=== PATIENT | female | born 1975 | race Caucasian/White ===

== ENCOUNTER 2021-08-27 12:56 | Outpatient (CLI) | payer BC, SELFPAY ==
[2021-08-27 13:55] LABS: Hematocrit 40.3 % (37.0-47.0); Hemoglobin 12.9 g/dL (12.0-15.0); Mean Corpuscular Hemoglobin 32.7 pg (26-34); Mean Platelet Volume 10.1 fl (7.4-10.4); Platelet Count Result 237 k/mm3 (150-375); Red Blood Count 3.95 M/mm3 (4.2-5.4); Red Cell Distribution Width 12.6 % (11.5-14.5); White Blood Count 6.9 K/mm3 (4.5-10.0)
[2021-08-27 15:05] LABS: Erythrocyte Sedimentation Rate 13 mm/hr (0-20)
[2021-08-27 15:31] LABS: Alanine Aminotransferase 93 U/L (6-35); Albumin Level 5.1 g/dL (3.5-5.1); Alkaline Phosphatase 82 U/L (38-126); Anion Gap 9 mmol/L (8-16); Aspartate Amino Transferase 63 U/L (14-36); Bilirubin,Total 0.3 mg/dL (0.2-1.3); Blood Urea Nitrogen 8 mg/dL (7-17); CRP < 0.5 mg/dL (<1.0); Calcium 9.6 mg/dL (8.4-10.2); Carbon Dioxide 26 mmol/L (22-30); Chloride 102 mmol/L (98-107); Estimated Glomerular Filt Rate > 60; Glucose 109 mg/dL (65-110); Potassium 4.4 mmol/L (3.4-5.0); Sodium 137 mmol/L (137-145)
== END 2021-08-27 12:57 | disposition home or self-care (01) ==
PROVIDERS: PCP Internal Medicine; Visit Provider Nurse Practitioner
DX: R68.81 Early satiety (principal); R19.7 Diarrhea, unspecified; R19.4 Change in bowel habit; R14.0 Abdominal distension (gaseous); R10.84 Generalized abdominal pain
CPT/HCPCS: 36415; 80053; 84443; 85027; 85652; 86140

== ENCOUNTER 2021-09-01 14:08 | Outpatient (CLI) | payer BC, SELFPAY ==
[2021-09-01 15:20] LABS: Toxigenic C. Diff NEGATIVE (NEGATIVE)
[2021-09-08 18:43] LABS: Calprotectin, Stool 16 mcg/g
== END 2021-09-01 14:09 | disposition home or self-care (01) ==
PROVIDERS: PCP Internal Medicine; Visit Provider Nurse Practitioner
DX: R10.84 Generalized abdominal pain (principal); R19.7 Diarrhea, unspecified; R19.4 Change in bowel habit; R14.0 Abdominal distension (gaseous); R68.81 Early satiety
CPT/HCPCS: 83993; 87045; 87427; 87493

== ENCOUNTER 2021-10-06 00:11 | Day surgery (SDC) | payer BC, SELFPAY ==
[2021-09-28 15:03] VITALS: BMI 32.3
[2021-10-06 08:21] VITALS: BP 131/88; PULSE 74; RESP 16; TEMP 36.5; O2SAT 99; BMI 32.0
[2021-10-06] MEDS: LACTATED RINGERS 1,000 ML 150 ML IV CONT (08:30)
--- NOTE | 2021-10-06 09:20 | PM.HPGS ---
History of Present Illness History of Present Illness Consent: Risks, benefits, and alternatives have been discussed and questions answered. Patient agrees to proceed with procedure. Chief complaint: GERD, change in bowel habits, early satiety Narrative: Aida Banerjee is a 46 year old female with gerd but not taking any med, also ibs with change in bowel habits (stool negative for infection), using bentyl, never had colonoscopy Review of Systems Constitutional: Constitutional: Denies headache(s) and Denies weakness Eyes: Eyes: Denies blurry vision ENT: Reports Normal hearing present, Denies headache(s) and Denies neck pain Cardiovascular: Cardiovascular: Denies chest pain and Denies dyspnea Respiratory: Respiratory: Denies dyspnea Gastrointestinal: Gastrointestinal: Reports no additional gastrointestinal complaints Genitourinary: Genitourinary: Denies dysuria Musculoskeletal: Musculoskeletal: Denies neck pain Integumentary/Breasts: Skin/Breast: Denies dry skin Neurologic: Reports Normal hearing present, Denies headache(s) and Denies weakness Psychiatric: Psychiatric: Denies anxiety Endocrine: Endocrine: Denies change in body appearance Hematologic/Lymphatic: Hematologic/Lymphatic: Denies easy bleeding Allergic/Immunologic: Allergic/Immunologic: Denies urticaria PMFSH Past Medical History Medical History (Updated 08/27/21 @ 12:26 by Marianne Liu, LOU) Bloating delivery delivered Change in bowel habit Diarrhea Early satiety Generalized abdominal pain Surgical History Surgical History (Updated 08/27/21 @ 11:49 by Jody Monroy MA) H/O laparoscopy H/O: hysterectomy Family History Family History (Updated 08/27/21 @ 11:51 by Jody Monroy MA) Father Heart disease Alcohol abuse Cancer Mother Asthma Depression Social History Social History (Updated 08/27/21 @ 11:52 by Jody Monroy MA) Smoking status: Current every day smoker Tobacco type: e-cigarettes/vaping Second hand tobacco smoke exposure: Yes Alcohol intake: current Alcohol use details: occasional Substance use: current Substance use type: marijuana Other substance usage details: Daily Living arrangements: with family Gender identity (if verbalized by the patient): Female Spiritual care concerns: No Meds Home Medications and Allergies Home Medications Medication Instructions Recorded Confirmed Type duloxetine 60 mg capsule,delayed 60 mg PO DAILY 08/27/21 10/06/21 History release (Cymbalta) propranolol 60 mg capsule,24 60 mg PO DAILY 08/27/21 10/06/21 History hr,extended release trazodone 150 mg tablet 150 mg PO DAILY 08/27/21 10/06/21 History acetaminophen 650 mg 650 mg PO Q8H PRN Pain 09/28/21 10/06/21 History tablet,extended release (Tylenol Arthritis Pain) dicyclomine 10 mg capsule 10 - 20 mg PO QID PRN Diarrhea 09/28/21 10/06/21 History hydroxyzine HCl 10 mg tablet 10 mg PO BID 09/28/21 10/06/21 History lactobacillus combination no.8 3 3,000,000 cell PO DAILY 09/28/21 10/06/21 History billion cell capsule Allergies Allergy/AdvReac Type Severity Reaction Status Date / Time Sulfa (Sulfonamide Allergy Mild Unknown Verified 10/06/21 08:19 Antibiotics) latex Allergy Blister Verified 10/06/21 08:19 Vital Signs Vital Signs - 24 hr 10/06/21 08:21 Temperature 97.7 F Pulse Rate 74 Respiratory Rate 16 Blood Pressure 131/88 Pulse Oximetry 99 Oxygen Delivery Room Air Exam Const: General: comfortable and no acute distress HENMT: General nose exam: Normal nares present Eyes: General: appearance normal, both eyes and all related structures Neck: Neck: no JVD Resp: Auscultation: clear to auscultation bilaterally Cardio: Rate: regular rate Rhythm: regular rhythm GI: Inspection: non-distended GI Palp: Yes Soft to palpation Skin: General skin exam: normal color Neuro: General: gait normal Speech: normal speech
--- NOTE | 2021-10-06 09:39 | SUR.OPER ---
EGD FINISHED AT 933 & COLONOSCOPY BEGAN AT 937.
[2021-10-06 09:51] VITALS: BP 124/82; PULSE 83; RESP 21; O2SAT 100
[2021-10-06 10:01] VITALS: BP 134/81; PULSE 78; RESP 19; O2SAT 100
[2021-10-06 10:11] VITALS: BP 125/86; PULSE 69; RESP 16; O2SAT 100
== END 2021-10-06 10:18 | disposition home or self-care (01) ==
PROVIDERS: PCP Physician Assistant Medical; Visit Provider Internal Medicine Gastroenterology
PROC: 0DJ08ZZ Inspection of Upper Intestinal Tract, Via Natural or Artificial Opening Endoscopic (ICD-10-PCS; CPT 43235; principal; 2021-10-06 09:30)
DX: Z12.11 Encounter for screening for malignant neoplasm of colon (principal); K52.9 Noninfective gastroenteritis and colitis, unspecified; K64.8 Other hemorrhoids; K21.9 Gastro-esophageal reflux disease without esophagitis; K44.9 Diaphragmatic hernia without obstruction or gangrene; K29.50 Unspecified chronic gastritis without bleeding; F17.290 Nicotine dependence, other tobacco product, uncomplicated; F12.90 Cannabis use, unspecified, uncomplicated
CPT/HCPCS: 45380; 43239; 88305; J2704; J7120

== ENCOUNTER 2021-11-03 10:14 | Outpatient (CLI) | payer BC, SELFPAY ==
--- NOTE | ~2021-11-03 | US_ITS ---
EXAMINATION: US abdomen limited DATE: 11/03/2021 11:07 INDICATION: Elevated liver function tests TECHNIQUE: Multiple grayscale and Doppler ultrasound images of the abdomen were obtained. COMPARISON: None available FINDINGS: The head and body of the pancreas are normal. The pancreatic tail is obscured by bowel gas. The liver demonstrates increased echogenicity, heterogenous echotexture, and decreased through trans mission. No surface nodularity. Normal hepatopetal flow in the main portal vein. The gallbladder is n ormal with no abnormal wall thickening, pericholecystic fluid or stones. The normal common bile duct measures 4 mm. There was no sonographic Pulliam sign. IMPRESSION: 1. Diffuse hepatic steatosis. Reviewed, dictated and finalized at location B.
== END 2021-11-03 10:15 | disposition home or self-care (01) ==
PROVIDERS: PCP Physician Assistant Medical; Visit Provider Nurse Practitioner
DX: R79.89 Other specified abnormal findings of blood chemistry (principal); K76.0 Fatty (change of) liver, not elsewhere classified; R10.84 Generalized abdominal pain
CPT/HCPCS: 76705

== ENCOUNTER 2022-03-03 06:38 | Outpatient (CLI) | payer OTHER, SELFPAY ==
--- NOTE | ~2022-03-03 | MR_ITS ---
EXAMINATION: MR ankle RT wo con DATE: 03/03/2022 08:05 INDICATION: Right ankle pain TECHNIQUE: Magnetic resonance imaging (MRI) of the right ankle was performed without intravenous cont rast. Sequences included sagittal, coronal, and axial proton-density weighted fast spin echo without and with fat saturation. COMPARISON: None. FINDINGS: Medial ankle ligaments: Deep and superficial deltoid ligaments as well as the spring ligament are normal. Lateral ankle ligaments: The anterior and posterior inferior tibiofibular ligaments are normal. The anterior talofibular, calc aneofibular and posterior talofibular ligaments are normal. Tendons: Mild Achilles tendinosis without peritendinitis or tear. The peroneus longus and brevis tendons are n ormal. The tibialis anterior and extensor hallucis longus and extensor digitorum longus tendons are n ormal. The tibialis posterior, flexor digitorum longus and flexor hallucis longus tendons are normal. Plantar fascia: Mild thickening of the proximal central component of the plantar aponeurosis with small plantar osteo phyte at its calcaneal origin consistent with mild chronic enthesopathy. Bones/other: Bone alignment is normal. There is thickening of the bifurcate ligament consistent with scarring rela katelin to chronic sprain with tiny nonunited avulsion fracture fragment along its origin at the dorsal m argin of the anterior process of the calcaneus. No acute fracture. Mild osteoarthritis at the right a nkle joint with small region of deep chondral ulceration along the lateral margin of the talar dome w ith areas tiny subarticular cystlike change remaining joint spaces appear normal. Fluid: Physiologic amount fluid in the joint spaces. No tenosynovitis or other abnormal fluid collections. IMPRESSION: 1. Chronic sprain of the bifurcate ligament with tiny chronic nonunited avulsion fracture fragment at its calcaneal origin. 2. Mild right ankle osteoarthritis with small region of high-grade chondral malacia along the lateral talar dome. 3. Mild Achilles tendinosis and mild enthesopathy at the proximal plantar aponeurosis. Reviewed, dictated and finalized at location A. RATION TECHNOLOGIST IMPRESSION: 1. Chronic sprain of the bifurcate ligament with tiny chronic nonunited avulsio n fracture fragment at its calcaneal origin. 2. Mild right ankle osteoarthritis with small region of high-grade chondral mal acia along the lateral talar dome. 3. Mild Achilles tendinosis and mild enthesopathy at the proximal plantar apone urosis.
== END 2022-03-03 06:39 | disposition home or self-care (01) ==
PROVIDERS: PCP Physician Assistant Medical; Visit Provider Physician Assistant Medical
DX: S93.491A Sprain of other ligament of right ankle, initial encounter (principal); M84.471A Pathological fracture, right ankle, initial encounter for fracture; M19.071 Primary osteoarthritis, right ankle and foot; M76.61 Achilles tendinitis, right leg; M77.51 Other enthesopathy of right foot and ankle; X58.XXXA Exposure to other specified factors, initial encounter
CPT/HCPCS: 73721

== ENCOUNTER 2022-03-15 15:32 | Outpatient (CLI) | payer OTHER, SELFPAY ==
--- NOTE | ~2022-03-15 | MM_ITS ---
EXAMINATION: MM screening liborio BI w rupesh HISTORY: Screening mammogram TECHNIQUE: Craniocaudal and mediolateral oblique 3-D tomosynthesis images were obtained and synthetic 2-D images were generated. CAD analysis was submitted and interpreted. COMPARISON: No prior mammogram is available for comparison at this institution. BREAST PARENCHYMAL COMPOSITION: The breasts are heterogeneously dense, which may obscure small masses . FINDINGS: There is no evidence of suspicious mass, calcification, or architectural distortion to sugg est malignancy in either breast. There has been no suspicious interval change. IMPRESSION: 1. No mammographic evidence of malignancy. 2. Recommend routine screening mammography in one year. BI-RADS Category 1: Negative Reviewed, dictated and finalized at location A. F ENGINEER
== END 2022-03-15 15:33 | disposition home or self-care (01) ==
PROVIDERS: PCP Physician Assistant Medical; Visit Provider Physician Assistant Medical
DX: Z12.31 Encounter for screening mammogram for malignant neoplasm of breast (principal)
CPT/HCPCS: 77063; 77067

== ENCOUNTER 2024-03-08 16:06 | Outpatient (CLI) | payer OTHER, SELFPAY ==
--- NOTE | ~2024-03-08 | CT_ITS ---
EXAMINATION: CT brain wo con DATE: 03/08/2024 15:55 INDICATION: Tremor TECHNIQUE: Computed tomography (CT) of the head was performed without intravenous contrast. Sagittal and coronal reconstructions were performed. The mA was adjusted according to patient size. Iterative reconstruction technique was employed. The dose-length product was 605.33 mGy-cm. COMPARISON: None FINDINGS: No acute intracranial hemorrhage, acute infarction or abnormal extra axial fluid collection. Ventricl es are normal and symmetric. No mass/mass effect. The orbits, paranasal sinuses and mastoid air cells are normal. IMPRESSION: 1. Normal brain. No acute intracranial process. Reviewed, dictated and finalized at location B. MOBILE ENGINE ASSEMBLER
[2024-03-08 21:20] LABS: Folic Acid 7.2 ng/mL (2.76->20)
== END 2024-03-08 16:07 | disposition home or self-care (01) ==
PROVIDERS: PCP Nurse Practitioner Family; Visit Provider Nurse Practitioner Family
DX: R25.1 Tremor, unspecified (principal)
CPT/HCPCS: 36415; 70450; 82607; 82746

== ENCOUNTER 2024-06-04 08:58 | Outpatient (CLI) | payer OTHER, SELFPAY ==
--- NOTE | ~2024-06-04 | MR_ITS ---
MRI of the brain Clinical History: Multiple sclerosis Technique: Axial and sagittal T1-weighted images were acquired. These were followed by axial T2-weigh katelin, diffusion weighted, gradient, and FLAIR images. Following intravenous administration of 14 cc Mu ltiHance gadolinium, T1-weighted fat-sat imaging was performed in the axial, coronal, and sagittal pl anes. Findings: No abnormal signal seen in the brain parenchyma. No acute infarct, intracranial hemorrhage or mass lesion. No white matter lesions are identified. Ventricles and subarachnoid spaces are unremarkable. Orbits are unremarkable. Paranasal sinuses and m astoid air cells are clear. Major intracranial flow voids are intact. Sagittal midline structures are intact. No abnormal postcontrast enhancement identified. IMPRESSION: Normal exam. Reviewed, dictated and finalized at location . IMPRESSION: Normal exam.
--- OUTSIDE RECORDS SUMMARY | 2024-06-04 09:26 | XMS_ITS | Patient Health Record ---
Author Organization [facility] Address [address] [place] [address] Care Team Providers Care Programs Assistant Name Role Phone Priscilla Salter Primary Care Provider Unavailab Cheo Harris Unavailable [phone] [employer], Provider Unavailable Unavailab le Allergies Allergen (clinical drug ingredient) Drug/Non Drug Allergy documented on EMR Reaction Allergy Type Onset Date Status indomethacin Indomethacin other reaction Drug Allergy Active sulfadiazine sulfADIAZINE hives Drug Allergy A ctive Reason For Referral No Information Medications Medication SIG (Take, Route, Frequency, Duration) Notes Start Date End Date Status NASAL WASHES N/A DIRECTED INTRANASALLY NEEDED for 30 *Please review for potential replacement for e-prescription and drug interaction check* Active Triamcinolone Acetonide 0.1 % 1 haja applied topically 3 times a day for 30 day(s) Active buPROPion HCl 75 MG 1 tab(s) orally 3 times a day Not-Taking FAMOTIDINE 40 mg 1 tab(s) orally 30 mins prior to SCIT for 30 days Active AUVI -Q 0.3 mg as directed intramuscularly once for 30 days Active Belsomra 10 MG 1 tab(s) orally once a day (at bedtime) Active CETIRIZINE 10 mg 1 tab(s) orally once a day for 30 days Active FLUTICASONE NASAL 50 mcg/inh 2 spray(s) in each nostril BID for 30 day(s) Active EPIPEN 2-JM 0.3 mg as directed intramuscularly once for 90 days 04/18/2022 Active PROPRANOLOL 60 mg 1 tab(s) orally 2 times a day takes once a day Active Triamcinolone Acetonide 0.1 % 1 haja applied topically 3 times a day for 30 day(s) 07/05/2022 Active DULOXETINE 60 mg 1 cap(s) orally once a day Active SIT (CLUSTER) VARIABLE PER SCHEDULE SC PER SCHEDULE for TO BE DETERMINED *Please review for potential replacement for e-prescription and drug interaction check* Active Montelukast Sodium 10 MG 1 tab(s) orally once a day for 30 day(s) Active FLUOCINONIDE TOPICAL 0.05% 1 haja applied topically 3 times a day uses prn itch Active BELSOMRA 10 mg 1 tab(s) orally once a day (at bedtime) Active Auvi-Q 0.3 MG/0.3ML as directed intramuscularly once for 30 days Active CLONAZEPAM 0.5 mg 1 tab(s) orally 3 times a day takes one pill daily Active Famotidine 40 MG 1 tab(s) orally 30 mins prior to SCIT for 30 days Active BUPROPION 75 mg 1 tab(s) orally 3 times a day Not-Taking TRIAMCINOLONE ACETONIDE TOPICAL 0.1% 1 haja applied topically 3 times a day for 30 day(s) Active EpiPen 2-Jm 0.3 MG/0.3ML as directed intramuscularly once for 90 days 04/18/2022 Active TRAZADONE 50MG 1 BY MOUTH AT BEDTIME takes 3 @ HS *Please review for potential replacement for e-prescription and drug interaction check* Active Fluticasone Propionate 50 MCG/ACT 2 spray(s) in each nostril BID for 30 day(s) Active Cetirizine HCl 10 MG 1 tab(s) orally once a day for 30 days Active MONTELUKAST 10 mg 1 tab(s) orally once a day for 30 day(s) Active Fluocinonide 0.05 % 1 haja applied topically 3 times a day uses prn itch Active clonazePAM 0.5 MG 1 tab(s) orally 3 times a day takes one pill daily Active DULoxetine HCl 60 MG 1 cap(s) orally once a day Active TRIAMCINOLONE ACETONIDE TOPICAL 0.1% 1 haja applied topically 3 times a day for 30 day(s) 07/05/2022 Active Propranolol HCl 60 MG 1 tab(s) orally 2 times a day takes once a day Active Social History Tobacco Use: Social History Observation Description Date Details (start date - stop date) Light tobacco s moker NA - NA Smoking Smart Form: Question Answer Notes Are you a: light tobacco smoker Problems Problem Type SNOMED Code ICD Code Onset Dates Problem Status W/U Status Risk Notes Problem Chronic allergic conjunctivitis (36819741) Other chronic allergic conjunctivitis (H10.45) Active confirmed Problem Allergic rhinitis caused by pollen (disorder) (66951806) Allergic rhinitis due to pollen (J30.1) Active confirmed Problem Allergic rhinitis caused by animal hair and dander (198946038531898) Allergic rhinitis due to animal (cat) (dog) hair and dander (J30.81) Active confirmed Problem Allergic rhinitis (22497388) Other allergic rhinitis (J30.89) Active confirmed Problem Prurigo nodularis (16022244) Prurigo nodularis (L28.1) Active confirmed Problem Dermatitis (181760360) Dermatitis, unspecified (L30.9) Active confirmed Problem Allergic rhinitis caused by pollen (disorder) (28246437) Allergic rhinitis due to pollen (J30.1) Active confirmed Problem Allergic rhinitis caused by animal hair and dander (723967746799348) Allergic rhinitis due to animal (cat) (dog) hair and dander (J30.81) Active confirmed Problem Allergic rhinitis (83422445) Other allergic rhinitis (J30.89) Active confirmed Problem Chronic allergic conjunctivitis (64287494) Other chronic allergic conjunctivitis (H10.45) Active confirmed Problem Allergic contact dermatitis caused by chemical (3541217286914866 3) Allergic contact dermatitis due to other chemical products (L23.5) Active confirmed Problem Eruption of skin (665533762) Rash and other nonspecific skin eruption (R21) Active confirmed Problem Allergic contact dermatitis due to metals (L23.0) Active confirmed Problem Elevated blood pressure reading without diagnosis of hypertension (551761000) Elevated blood-pressure reading, without diagnosis of hypertension (R03.0) Active confirmed Encounters Encounter Location Date Provider Diagnosis [facility] [address] 08/05/2023 Provider ZZ-Migration Plan Of Treatment No Information Insurance Providers Payer Name Payer Address Payer Phone Subscriber Number Group Number Insured Name Patient Relationship to Insured Coverage Start Date Coverage End Date [facility] [address] [address] [place] [address] [phone] [id number] Jorge Banerjee Spouse - patient is the spouse of the insured Medical (General) History Medical History History ICD Code Allergic rhinitis due to pollen J30.1 Allergic rhinitis due to animal (cat) (d og) hair and dander J30.81 Other allergic rhinitis J30.89 Other chronic allergic conjunctivitis H1 0.45 Rash and other nonspecific skin eruption R21 Dermatitis, unspecified L30.9 Elevated blood-pressure reading, without diagnosis of hypertension R03.0 Allergic contact dermatitis due to other chemical products L23.5 Allergic contact dermatitis due to metal s L23.0 Surgical History Surgery Date(Month/Year) C-Sections
--- OUTSIDE RECORDS SUMMARY | 2024-06-04 09:26 | XMS_ITS | Clinical Summary ---
Author Organization [facility] [address] [facility] Address [address] [place] [address] Care Team Providers Care Supply Tech Name Role Phone Jaclyn Salter Primary Care Provider [phone] Benson Newman MD Unavailable [phone] Allergies Active Allergy Reactions Criticality Noted Date Comments Indomethacin Anaphylaxis,Other (See comments),Swelling High 10/04/2017 Throat swelling Latex Rash Medium 01/29/2019 Sulfa (Sulfonamide Antibiotics) Anaphylaxis High 01/29/2019 Medications No known medications Active Problems Problem Noted Date Diagnosed Date Positive KISHA (antinuclear antibody) 12/21/2020 Overview (01/11/2021): Labs 12/21/2020 AVISE: KISHA 1:320 homogeneous, cardiolipin IgA 22, B2 glycoprotein IgA 176 CRP, CK, LDH, and aldolase wnl Xrays 01/05/2021 XR SI joints - L OA XR B knees and L spine unremarkable Ultrasound 01/05/2021 US right hand/wrist: Mild effusions and power doppler on examination. Marked synovial thickening in the 2nd PIP joint. Moderate synovial thickening in the 3rd PIP joint. Grade 1 power doppler in the wrist and radial/scaphoid joint. Grade 1 effusion in the 2nd PIP joint. Assessment & Plan (01/11/2021 10:09 AM CYBER THREAT ANALYST): 45yoF referred for evaluation due to rash, joint pain/stiffness, muscle weakness, and labs showing +KISHA with SENIOR ELECTRICAL ESTIMATOR 1.1. She denies any inflammatory sounding joint pain. The rash she notes has been present from her scalp to the soles of her feet and is associated with pruritus; lesions today appear excoriated and she has numerous scars/hypopigmentation from prior lesions. She otherwise notes sicca symptoms and h/o photosensitive rashes. By exam today she has numerous tender joints without any obvious synovitis and her strength is appropriate throughout. Our workup shows an KISHA 1:320 with otherwise unremarkable serologies including the SENIOR ELECTRICAL ESTIMATOR, xrays with L SI joint OA, and R hand/wrist ultrasound without significant inflammatory changes. Overall there is not evidence to suggest any underlying rheumatologic diagnosis. Agree with need for derm evaluation of skin lesions. Follow up with our office as needed should symptoms warrant. Assessment & Plan (12/21/2020 2:58 PM CDT): 45yoF referred for evaluation due to rash, joint pain/stiffness, muscle weakness, and labs showing +KISHA with SENIOR ELECTRICAL ESTIMATOR 1.1. She denies any inflammatory sounding joint pain. The rash she notes has been present from her scalp to the soles of her feet and is associated with pruritus; lesions today appear excoriated and she has numerous scars/hypopigmentation from prior lesions. She otherwise notes sicca symptoms and h/o photosensitive rashes. By exam today she has numerous tender joints without any obvious synovitis and her strength is appropriate throughout. The +SENIOR ELECTRICAL ESTIMATOR can be seen in the setting of MCTD, though overall have a lower suspicion for any underlying rheumatologic diagnosis and suspect that this may be a false positive. Agree with need for derm evaluation of skin lesions. Otherwise, will check serologies as below with plan for follow up in 2 weeks to review results. Polyarthralgia 12/21/2020 Overview (01/05/2021): US right hand/wrist (01/05/21): Mild effusions and power doppler on examination. Marked synovial thickening in the 2nd PIP joint. Moderate synovial thickening in the 3rd PIP joint. Grade 1 power doppler in the wrist and radial/scaphoid joint. Grade 1 effusion in the 2nd PIP joint. Social History Tobacco Use Types Packs/Day Years Used Date Smoking Tobacco: Never Assessed Comments Unknown Sex and Gender Information Value Date Recorded Sex Assigned at Not on file Legal Sex Female 11:12 AM CDT Gender Identity Not on file Sexual Orientation Not on file Obstetrics History Last Filed Vital Signs Vital Sign Reading Time Taken Comments Blood Pressure 142/100 01/11/2021 8:38 AM CYBER THREAT ANALYST Pulse 92 01/11/2021 8:38 AM CYBER THREAT ANALYST Temperature 36 C (96.8 F) 01/11/2021 8:38 AM CYBER THREAT ANALYST Respiratory Rate - - Oxygen Saturation 99% 01/11/2021 8:38 AM CYBER THREAT ANALYST Inhaled Oxygen Concentration - - Weight 84.8 kg (187 lb) 01/11/2021 8:38 AM CYBER THREAT ANALYST Height - - Body Mass Index - - Plan of Treatment Not on file Insurance [employer] Care Teams Supply Tech Relationship Specialty Start Date End Date Jaclyn Salter PA [address] [place] [address] PCP - General Family Practice 11/26/20 Benson Newman MD [address] [place] [address] Consulting Physician Rheumatology 11/26/20
--- OUTSIDE RECORDS SUMMARY | 2024-06-04 09:26 | XMS_ITS | Encounter Summary ---
Author Organization [facility] Address [address] [place] [address] Care Team Providers Care Marble And Granite Polisher Name Role Phone Jaclyn Salter Primary Care Provider Encounter Details Date Type Department Care Team (Late st Contact Info) Description 01/22/2021 Lab Requisition [facility] DermPath Lab [address] [place] [address] Garrick Levy MD [address] [place] [address] Social History Tobacco Use Types Packs/Day Years Used Date Smoking Tobacco: Never Assessed Comments Unknown Sex and Gender Information Value Date Recorded Sex Assigned at Not on file Legal Sex Female 4:29 PM ESTHETICIAN Gender Identity Not on file Sexual Orientation Not on file documented as of this encounter Plan of Treatment Not on file documented as of this encounter Procedures Procedure Name Priority Date/Time Associated Diagnosis Comments DERMATOPATHOLOGY Routine 01/20/2021 12:0 0 AM ESTHETICIAN documented in this encounter Results * DERMATOPATHOLOGY (01/20/2021 12:00 AM ESTHETICIAN) Case Report Dermatopathology Report Case: [id number] Authorizing Provider: Garrick Levy MD Collected: 01/20/2021 12:00 AM Ordering Location: [facility] Derm[facility] Lab Received: 01/22/2021 08:12 AM Pathologist: Christy Galloway MD Specimen: Skin, right chest 11:16 AM ESTHETICIAN DERMATOPATHOLOGY LABORATORY Final Diagnosis Specimen A. SKIN, right chest: PERIVASCULAR AND INTERSTITIAL MIXED INFLAMMATORY INFILTRATE (L50.9) CHRONIC PERIFOLLICULITIS WITH PITYROSPORUM (L73.8) (see microscopic description and comment) 11:16 AM [facility] DERMATOPATHOLOGY LABORATORY Clinical History Prurigo vs other. Path# [id number] 11:16 AM [facility] DERMATOPATHOLOGY LABORATORY Gross Description Specimen A: Received is one formalin filled container labeled with the patient's name and designated right chest. The specimen consists of a shave biopsy measuring [id number]. Jar 0. 11:16 AM [facility] DERMATOPATHOLOGY LABORATORY Microscopic Description Specimen A. SKIN, right chest: A perivascular and interstitial mixed infiltrate composed of lymphocytes, neutrophils and plasma cells is present within the dermis. Sections show a perifollicular lymphohistiocytic infiltrate. Fungal yeast forms consistent with Pityrosporum species are seen within a hair follicle. Anti-treponemal antibody is negative for spirochetes. Additional deeper sections were obtained and reviewed. COMMENT: The histological differential diagnosis is extensive and includes an infectious related exanthem or hypersensitivity reaction, a drug eruption, and gyrate erythemas. Clinical correlation is recommended. 11:16 AM [facility] DERMATOPATHOLOGY LABORATORY Disclaimer An external and internal positive and negative controls are appropriate for the histochemical, immunohistochemical and immunofluorescence stain(s) in this case (if any), except where stated explicitly. The performance characteristics of the stain(s) cited in this report were developed and its performance characteristic determined by the Dermatopathology Laboratory at [facility], directed by Dr. Lewis Travis. These tests need not be, and therefore are not, approved by the [place] Food and Drug Administration. The tests are used for clinical purposes. Billing Codes Specimen Charges Stain Charges 86269 1 99868 1 11:16 AM [facility] DERMATOPATHOLOGY LABORATORY Embedded Images 11:16 AM [facility] DERMATOPATHOLOGY LABORATORY Pathology/Cytolog y TISSUE SPECIMEN FROM SKIN / Unknown 01/20/2021 01/22/2021 8:12 AM [facility] us Garrick Levy MD LAB - PATHOLOGY/CYTOLOGY ORDER HAL Final Result DERMATOPATHOLOGY LABORATORY [facility] - Department of Dermatology [address] [phone] documented in this encounter Visit Diagnoses Not on filedocumented in this encounter Care Teams Marble And Granite Polisher Relationship Specialty Start Date End Date Jaclyn Salter PA [facility] [place] [address] PCP - General 10/14/21 documented as of this encounter
--- OUTSIDE RECORDS SUMMARY | 2024-06-04 09:26 | XMS_ITS | Referral Summary ---
Author Organization [facility] [address] [facility] Address [address] [place] [address] Care Team Providers Care Accounting Specialist Name Role Phone Jaclyn Salter Primary Care Provider [phone] Benson Newman MD Unavailable [phone] Allergies Active Allergy Reactions Criticality Noted Date [...] joint. Assessment & Plan (01/11/2021 10:09 AM PROFESSOR OF FINANCE): 45yoF referred for evaluation due to rash, joint pain/stiffness, muscle weakness, and labs showing +KISHA with CHILLER TECHNICIAN 1.1. She denies any inflammatory sounding joint [...] 1:320 with otherwise unremarkable serologies including the CHILLER TECHNICIAN, xrays with L SI joint OA, and [...] muscle weakness, and labs showing +KISHA with CHILLER TECHNICIAN 1.1. She denies any inflammatory sounding joint [...] and her strength is appropriate throughout. The +CHILLER TECHNICIAN can be seen in the setting of [...] on file Sexual Orientation Not on file Last Filed Vital Signs Vital Sign Reading Time Taken Comments Blood Pressure 142/100 01/11/2021 8:38 AM PROFESSOR OF FINANCE Pulse 92 01/11/2021 8:38 AM PROFESSOR OF FINANCE Temperature 36 C (96.8 F) 01/11/2021 8:38 AM PROFESSOR OF FINANCE Respiratory Rate - - Oxygen Saturation 99% 01/11/2021 8:38 AM PROFESSOR OF FINANCE Inhaled Oxygen Concentration - - Weight 84.8 kg (187 lb) 01/11/2021 8:38 AM PROFESSOR OF FINANCE Height - - Body Mass Index - - Plan of Treatment Not on file Insurance [employer] Care Teams Accounting Specialist Relationship Specialty Start Date End Date Jaclyn Salter PA [address] [place] [address] PCP - General Family Practice 11/26/20 Benson Newman MD [address] [place] [address] Consulting Physician Rheumatology 11/26/20
--- OUTSIDE RECORDS SUMMARY | 2024-06-04 09:26 | XMS_ITS | Encounter Summary ---
Author Organization [facility] Address [address] [place] [address] Care Team Providers Care Visual Supervisor Name Role Phone Jaclyn Salter PA-C Primary Care Provider [phone] Encounter Details Date Type Department Care Team (Late st Contact Info) Description 07/08/2019 Prep for Procedure [facility] Pre-Admission Testing [facility] [place], [place] [phone] Laura Hernadez, [address] [place] [address] Social History Tobacco Use Types Packs/Day Years Used Date Smoking Tobacco: Every Day Cigarettes 0.5 15 Smokeless Tobacco: Never Alcohol Use Standard Drinks/Week Comments Yes 12 (1 standard drink = 0.6 oz pu re alcohol) Comments No Sex and Gender Information Value Date Recorded Sex Assigned at Not on file Legal Sex Female 7:32 AM CDT Gender Identity Not on file Sexual Orientation Not on file COVID-19 Exposure Response Date Recorded In the last month, have you been in contact with someone who was confirmed or suspected to have Coronavirus / COVID-19? No / Unsure 07/09/2019 2:05 PM CDT documented as of this encounter Plan of Treatment Not on file documented as of this encounter Results * PREG TEST SERUM (HCG QUALITATIVE) (07/12/2019 10:59 AM CDT) PREG SCREEN-SERUM NEGATIVE 07/12/2019 11:31 AM CDT [facility] 07/12/2019 10:5 9 AM CDT Beverley Tracy [facility] Final R esult [facility] [address] [place] [address], * PRE-SURGICAL/PRE-PROCEDURE CORONAVIRUS (COVID 19) (07/09/2019 3:00 PM CDT) CORONAVIRUS SARS COV 2 PCR (RESP) NOT DETECTED NOT DETECTED 07/10/2019 5:14 PM CDT [facility] Comment: A Not Detected (negative) test result for this test means that SARS- CoV-2 RNA was not present in the specimen above the limit of detection. A negative result does not rule out the possibility of COVID-19 and should not be used as the sole basis for treatment or patient management decisions. If COVID-19 is still suspected, based on exposure history together with other clinical findings, re-testing should be considered in consultation with public health authorities. Laboratory test results should always be considered in the context of clinical observations and epidemiological data in making a final diagnosis and patient management decisions. Please review the Fact Sheets and FDA authorized labeling available for health care providers and patients using the following websites: https://www.[employer].com/home/Covid-19/HCP/[employer]/fact- sheet.html https://www.[employer]/home/Covid-19/Patients/ [employer]/fact-sheet.html This test has been authorized by the FDA under an Emergency Use Authorization (EUA) for use by authorized laboratories. Due to the current public health emergency, [employer] [facility] is receiving a high volume of samples from a wide variety of swabs and media for COVID-19 testing. In order to serve patients during this public health crisis, samples from appropriate clinical sources are being tested. Negative test results derived from specimens received in non-commercially manufactured viral collection and transport media, or in media and sample collection kits not yet authorized by FDA for COVID-19 testing should be cautiously evaluated and the patient potentially subjected to extra precautions such as additional clinical monitoring, including collection of an additional specimen. Methodology: Nucleic Acid Amplification Test (NAAT) includes PCR or TMA Additional information about COVID-19 can be found at the [employer] website: www.[employer]/Covid19. Test performed at [facility] [place] [address] [place] [address] Director: CARMEN COUCH DO,MPH NASOPHARYNGEAL SWAB / Unknown 07/09/2019 3:00 PM CDT us Laura Hernadez DO MICROBIOLOGY - GENERAL [facility] Final Result [facility] [id number] [place] [address] documented in this encounter Visit Diagnoses Diagnosis Preop examination- Primary Preoperative examination, unspecified documented in this encounter Additional Health Concerns Infection Onset Date Last Indicated Resolved Time COVID-19 Rule Out 07/09/2019 07/09/2019 07/10/2019 5:14 PM CDT documented as of this encounter Care Teams Visual Supervisor Relationship Specialty Start Date End Date Jaclyn Salter PA-C PCP - General NURSE PRACTITIONER 07/08/19 documented as of this encounter
--- OUTSIDE RECORDS SUMMARY | 2024-06-04 09:26 | XMS_ITS | Clinical Summary ---
Author Organization [facility] Address [address] [place] [address] Care Team Providers Care Electronic Component Processor Name Role Phone Jaclyn Salter Primary Care Provider [phone] [facility],non-owned Affiliates and Associated Physician Practices is amultiple site organization consisting of ambulatory clinics and hospital sitesin [place], [place], [place] and [place]. This disclosure is being madepursuant to the Care Everywhere program and may not contain all information available regarding this patient. Last updated 17.[facility] [employer] Social History Tobacco Use Types Packs/Day Years Used Date Smoking Tobacco: Never Assessed Comments Unknown Sex and Gender Information Value Date Recorded Sex Assigned at Not on file Legal Sex Female 4:29 PM FIELD TECHNICAL SUPPORT CONSULTANT Gender Identity Not on file Sexual Orientation Not on file Plan of Treatment Health Maintenance Due Date Last Done Comments COLOGUARD (AGES 45-75) - COL ON CA SCREENING 1974 COLON MONITORING 1974 COLONOSCOPY - COLON CA SCREENING 1974 CT COLONOGRAPHY - COLON CA SCREENING 1974 Colorectal Cancer Screening 1974 FIT - COLON CA SCREENING 1974 FLEX SIG - COLON CA SCREENING 1974 LIPID TESTING 1974 MAMMOGRAM 1974 PAP SMEAR 1974 HIV SCREENING 1989 HEPATITIS C SCREENING 04/06/1992 DTAP/TDAP/TD VACCINES (1 - Tdap) 1993 HEPATITIS B VACCINE (1 of 3 - 19+ 3-dose series) 1993 COVID-19 VACCINE ( - 2023-2 5 season) 2023 DEPRESSION SCREENING 02/21/2024 PNEUMOCOCCAL VACCINE 50+ (1 of 1 - PCV) 2024 ZOSTER VACCINE (1 of 2) 2024 INFLUENZA VACCINE (Season Ended) 2024 HIB VACCINE Aged Out No longer eligi ble based on patient's age to complete this topic HPV VACCINE Aged Out No longer eligi ble based on patient's age to complete this topic MENINGOCOCCAL (Group B) VACC INE SHARED DECISION-MAKING Aged Out No longer eligibl e based on patient's age to complete this topic MENINGOCOCCAL GROUPS A/C/Y/W VACCINE Aged Out No longer eligible b ased on patient's age to complete this topic PNEUMOCOCCAL VACCINE Aged Out No long er eligible based on patient's age to complete this topic Care Teams Electronic Component Processor Relationship Specialty Start Date End Date Jaclyn Salter PA [address] [place] [id number] PCP - General 10/14/21
--- OUTSIDE RECORDS SUMMARY | 2024-06-04 09:26 | XMS_ITS | Clinical Summary ---
Author Organization [facility] Address [address] [place] [address] Care Team Providers Care Binder Stripper Machine Name Role Phone Jaclyn Salter PA-C Primary Care Provider [phone] Allergies Active Allergy Reactions Criticality Noted Date Comments Sulfamethoxazole-Trimet hoprim Anaphylaxis High 07/08/2019 Indomethacin Anaphylaxis,Other (see comment),Swelling High 10/04/2017 Throat swelling Latex Rash Low 01/29/2019 Sulfa Antibiotics Anaphylaxis High 01/29/2019 Medications propranolol LA 60 MG 24 hr capsule TAKE ONE CAPSULE BY MOUTH EVERY NIGHT AT BEDTIME 06/21/2017 Active traZODone 150 MG tablet TAKE 1 TABLET BY MOUTH EVERY NIGHT AT BEDTIME 11/30/2018 Active gabapentin 300 MG capsule Take 1 capsule by mouth 3 (three) times a day. 05/07/2019 Active DULoxetine 60 MG capsule Take 1 capsule by mouth nightly. 04/03/2019 Active medroxyPROGESTE Osman 10 MG tablet Take 1 tablet by mouth nightly. 05/07/2019 Active ondansetron 4 MG tablet Take 4 mg by mouth 3 (three) times daily as needed. 02/11/2019 Active diphenhydrAMINE 25 MG capsule Take 25 mg by mouth every 6 (six) hours as needed for Itching. Active ibuprofen 600 MG tablet Take 1 tablet (600 mg total) by mouth every 6 (six) hours as needed for Pain. 40 tablet 07/12/2019 Active HYDROcodone-marcela taminophen 5-325 MG tabletIndicatio ns:Acute Pain < 7 Day Supply Take 1-2 tablets by mouth every 6 (six) hours as needed for Pain. Indications: Acute Pain < 7 Day Supply 12 tablet 07/12/2019 Active gabapentin 300 MG capsule Take 1 capsule (300 mg total) by mouth 3 (three) times daily. Take one cap three times a day for 3 days, then one cap twice a day for 3 days then one capsule daily for 3 days 18 capsule 07/12/2019 Active docusate sodium 100 MG capsule Take 1 capsule (100 mg total) by mouth 2 (two) times daily as needed for Constipation . 30 capsule 07/12/2019 Active Active Problems Problem Noted Date Diagnosed Date Sprain of right ankle 03/23/2022 Avulsion fracture of right ankle 03/23/2022 Abnormal uterine bleeding 07/12/2019 Pelvic pain 07/12/2019 Bilateral plantar fasciitis 03/05/2019 Immunizations Immunization Administration Dates Next Due Tdap (Boostrix) 05/04/2023 Family History Medical History Relation Comments Cancer Father prostate Multiple Sclerosis Father Arthritis Mother Asthma Mother Depression Mother Eczema Mother Hypertension Mother Sleep Apnea Mother Relation Status Comments Father Alive Mother Alive Social History Tobacco Use Types Packs/Day Years Used Date Smoking Tobacco: Former Cigarettes 0.5 15 0 04/20/2005 - 04/20/2020 Smokeless Tobacco: Never Tobacco Cessation:Counseling Given: Not Answered Alcohol Use Standard Drinks/Week Comments Yes 12 (1 standard drink = 0.6 oz pu re alcohol) Comments No Sex and Gender Information Value Date Recorded Sex Assigned at Not on file Legal Sex Female 7:32 AM CDT Gender Identity Not on file Sexual Orientation Not on file Last Filed Vital Signs Vital Sign Reading Time Taken Comments Blood Pressure 191/114 05/04/2023 12:14 AM CDT Pulse 88 05/04/2023 12:14 AM CDT Temperature 36.3 C (97.4 F) 05/04/2023 12:14 AM CDT Respiratory Rate 18 05/04/2023 12:14 AM CDT Oxygen Saturation 100% 05/04/2023 12:14 AM CDT Inhaled Oxygen Concentration - - Weight 83 kg (182 lb 15.7 oz) 05/04/2023 12:14 A M CDT Height 166.4 cm (5' 5.5 ) 05/04/2023 12:14 AM CD T Body Mass Index 29.99 05/04/2023 12:14 AM CDT Plan of Treatment Health Maintenance Due Date Last Done Comments Colorectal Cancer Screening Colonoscopy (10 Years) 1974 Annual Physical 1977 Hepatitis C 1992 Hepatitis B Vaccines (1 of 3 - 19+ 3-dose series) 1993 Cervical Cancer Screening Pa p with HPV Testing (Age 30 to 64) Every 5 Years 2004 Cervical Cancer Screening Pa p Smear (Age 30 to 64) Every 3 Years 11/14/2015 11/13/2012 Cervical Cancer Screening wi th HPV 11/14/2015 Mammogram Screening 04/10/2021 04/10/2019, 03/12/2019 COVID-19 Vaccine (3 - 2023-2 5 season) 2023 11/08/2020, 10/18/2020 Zoster Vaccines (1 of 2) 2024 DTaP, Tdap and Td Vaccines ( 2 - Td or Tdap) 05/03/2033 05/04/2023 Meningococcal B Vaccine Aged Out No l onger eligible based on patient's age to complete this topic Meningococcal Vaccine Aged Out No lisa cinthia eligible based on patient's age to complete this topic Pneumococcal Vaccine: Pediatrics (0 to 5 Years) and At-Risk Patients (6 to 49 Years) Aged Out No longer eligible b ased on patient's age to complete this topic RSV Immunizations Under 20 Months Aged Out No longer eligible b ased on patient's age to complete this topic Procedures Procedure Name Priority Date/Time Associated Diagnosis Comments MG DIAG ADD VIEW RT DIGI Routine 04/10/2019 10:00 AM SENIOR SERVICE TECHNICIAN Abnormal mammogram THINPREP IMAGING SYSTEM PAP Routine 11/13/2012 10:47 AM CDT from Last 3 Months or Most Recently Relevant to Health Maintenance Results * MG DIAG ADD VIEW RT DIGI (04/10/2019 10:00 AM SENIOR SERVICE TECHNICIAN) Anatomical Region Laterality Modality Breast Right Mammography, Rad iographic Imaging 04/10/2019 10:3 3 AM SENIOR SERVICE TECHNICIAN Narrative 04/10/2019 10:35 AM SENIOR SERVICE TECHNICIAN RIGHT BREAST DIAGNOSTIC MAMMOGRAPHY WITH COMPUTER AIDED DETECTION: MG DIAG ADD VIEW RT DIGI COMPARISON STUDIES: 03/12/2019, 06/24/2016. CLINICAL HISTORY: Other abnormal and inconclusive findings on diagnostic imaging of breast Abnormal mammogram focal asymmetry only on the CC tomogram upper inner quadrant 6 cm from the nipple. FINDINGS: Right CC spot compression view and right mL 2-D and 3-D acquisitions. The focal asymmetry appears to efface with compression. A small cyst and a probable lymph node were noted in the area on same-day ultrasound. Recommend six-month follow-up to assess stability. CONCLUSION: 1. BI-RADS Category 3 - probably benign findings, but short interval follow-up is recommended. Recommend 6 month follow up. 2. TISSUE TYPE: Category B - There are areas of scattered fibroglandular density. MQSA BI-RADS Categories: Category 0 - needs additional imaging evaluation. Category 1 - negative. Category 2 - benign findings. Category 3 - probably benign findings, but short interval follow-up is recommended. Category 4 - suspicious abnormality and biopsy should be considered though the lesion may well be benign. Category 5 - highly suggestive of malignancy and appropriate action should be taken. A) A negative report should not delay a biopsy if a dominant or clinically suspicious mass is present. B) Adenosis and dense breasts may obscure an underlying neoplasm. C) Study interpreted with computer aided detection. Voice recognition software utilized. Interpreted By: Sampson Sams, 04/10/2019 10:33 AM us Jaclyn Salter PA-C MAMMO Final Resu lt * (ABNORMAL) THINPREP IMAGING SYSTEM PAP (11/13/2012 10:47 AM CDT) PATHOLOGY (A) [facility] T O EPIC CONVERSION Comment: Patient Name: CHLOE SUÁREZ Specimen #: [id number] Procedure Date: 11/13/2012 /Age: 02 1975 (Age: 37) Gender: F Accessioned: 11/14/2012 Address: [address] [place] [address] Reported: 11/19/2012 Encounter: [id number] Location: [facility] Physician(s): ALVIN GILES MD : CYTOPATHOLOGY - GYNECOLOGIC REPORT Diagnosis: TEST NAME: THINPREP PAP WITH MAGAZINE FILLER,REFLEX HPV-ASCUS ONLY INTERPRETATION/RESULT: EPITHELIAL CELL ABNORMALITY: ATYPICAL SQUAMOUS CELLS OF UNDETERMINED SIGNIFICANCE. SPECIMEN FORWARDED TO MICROBIOLOGY FOR FURTHER HPV DNA EVALUATION. STATEMENT OF ADEQUACY: SATISFACTORY FOR EVALUATION; ENDOCERVICAL/TRANSFORMATION ZONE COMPONENT PRESENT. MANUELA JASMINE M.D. 11/19/2012 Report Electronically Signed Procedures/Addenda HPV DNA: Interpretation: HPV DNA, HIGH RISK: POSITIVE THIS HIGH-RISK HPV TEST DETECTS FOURTEEN HIGH-RISK TYPES (16, 18, 31, 33, 35, 39, 45, 51, 52, 56, 58, 59, 66, 68) WITHOUT DIFFERENTIATION. Shaista Hussein HPV DNA Electronically Signed sab11/22/2012 Specimen: THINPREP PAP WITH MAGAZINE FILLER,REFLEX HPV-ASCUS ONLY Clinical Diagnosis and History Date of Last Menstrual Period: N/A Specimen Source: Cervical PAP SMEARS ARE SCREENING TESTS SUBJECT TO BOTH FALSE NEGATIVE AND FALSE POSITIVE RESULTS EVIDENCED BY DATA PUBLISHED IN THE MEDICAL LITERATURE. YOUR PATIENT' S RESULT SHOULD BE INTERPRETED IN THIS CONTEXT, TOGETHER WITH THE PATIENT' S HISTORY AND CLINICAL FINDINGS. 11/13/2012 10:4 7 AM CDT Narrative [facility] TO EPIC CONVERSION - 11/13/2012 10:47 AM CDT [Task Forwarded to [facility] [place]] colposcopy Alvin Giles MD PATHOLOGY/CYTOLOGY ORDERABLES Ed ited Result - Final [facility] TO EPIC CONVERSION from Last 3 Months or Most Recently Relevant to Health Maintenance Insurance Advance Directives * Full Code (Latest Code Status on File) Date Activated Date Inactivated Comments 07/12/2019 3:15 PM 07/12/2019 11:11 PM Care Teams Binder Stripper Machine Relationship Specialty Start Date End Date Jaclyn Salter PA-C PCP - General NURSE PRACTITIONER 07/08/19
--- OUTSIDE RECORDS SUMMARY | 2024-06-04 09:27 | XMS_ITS ---
Author Organization [facility] Address [address] [place] [address] Care Team Providers Care Manager French Name Role Phone Priscilla Salter Primary Care Provider Unavailab Cheo Harris Unavailable [phone] ZZ-Migration, Provider Unavailable Unavailab le Allergies Allergen (clinical drug ingredient) Drug/Non Drug Allergy documented on EMR Reaction Allergy Type Onset Date Status indomethacin Indomethacin other reaction Drug Allergy Active sulfadiazine sulfADIAZINE hives Drug Allergy A ctive REASON FOR VISIT [facility] To [facility] Conversion Encounter Medications Medication SIG (Take, Route, Frequency, Duration) Notes Start Date End Date Status NASAL WASHES N/A DIRECTED INTRANASALLY NEEDED for 30 *Please review for potential replacement for e-prescription and drug interaction check* Active Auvi-Q 0.3 MG/0.3ML as directed intramuscularly once for 30 days Active Triamcinolone Acetonide 0.1 % 1 haja applied topically 3 times a day for 30 day(s) 07/05/2022 Active SIT (CLUSTER) VARIABLE PER SCHEDULE SC PER SCHEDULE for TO BE DETERMINED *Please review for potential replacement for e-prescription and drug interaction check* Active Montelukast Sodium 10 MG 1 tab(s) orally once a day for 30 day(s) Active Famotidine 40 MG 1 tab(s) orally 30 mins prior to SCIT for 30 days Active EpiPen 2-Jm 0.3 MG/0.3ML [...] once a day for 30 days Active Belsomra 10 MG [...] Not-Taking Encounters Encounter Location Date Provider Diagnosis [address] [address] 08/05/2023 Provider ZZ-Migration Plan Of Treatment No Information Progress Notes * Francoise BANERJEEB:1975 ( 49 yo F)Acc No.[id number]:08/05/2023 Patient: Gavi BOWENMICIKEAida Provider: Saúl Romo :1975 A ge:48 Y S ex:Female Date:08/05/2023 Address:[address] [place], [place] [phone] Pcp:Priscilla Salter Subjective: * Chief Complaints: * [...] * Electronic signature of Marlon TEJEDA-Migration on 06/04/2024 at 09:27 AM CDT Sign off status: Pending * Provider: Saúl cortes Migration Date: 08/05/2023 Generated for Shilpa cifuentes/Hector/Tamra on: 06/04/2024 09:27 AM CDT
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
== END 2024-06-04 08:59 | disposition home or self-care (01) ==
PROVIDERS: PCP Nurse Practitioner Family; Visit Provider Psychiatry & Neurology Neurology
DX: G35 Multiple sclerosis (principal); R56.9 Unspecified convulsions; G62.9 Polyneuropathy, unspecified
CPT/HCPCS: 70553; 95816; A9579

== ENCOUNTER 2024-10-03 13:54 | Outpatient (CLI) | payer BC, SELFPAY ==
--- OUTSIDE RECORDS SUMMARY | 2024-10-03 14:02 | XMS_ITS | Encounter Summary ---
Author Organization [facility] Address [address] [place] [address] Care Team Providers Care Molder Machine Tender Name Role Phone Jaclyn Salter Primary Care Provider Encounter Details Date Type Department Care Team (Late st Contact Info) Description 01/22/2021 Lab Requisition [facility] [address] [place] [address] Garrick Levy MD [address] [place] [address] Social History Tobacco Use Types Packs/Day Years Used Date Smoking Tobacco: Never Assessed Comments Unknown Sex and Gender Information Value Date Recorded Sex Assigned at Not on file Legal Sex Female 4:29 PM MONTESSORI TODDLER TEACHER Gender Identity Not on file Sexual Orientation Not on file documented as of this encounter Plan of Treatment Not on file documented as of this encounter Procedures Procedure Name Priority Date/Time Associated Diagnosis Comments DERMATOPATHOLOGY Routine 01/20/2021 12:0 0 AM MONTESSORI TODDLER TEACHER documented in this encounter Results * DERMATOPATHOLOGY (01/20/2021 12:00 AM MONTESSORI TODDLER TEACHER) Case Report Dermatopathology Report Case: [id number] Authorizing Provider: Garrick Levy MD Collected: 01/20/2021 12:00 AM Ordering Location: [facility] Received: 01/22/2021 08:12 AM Pathologist: Christy Galloway MD Specimen: Skin, right chest 11:16 AM [employer]ONTESSOR[employer] TODDLER TEACHER DERMATOPATHOLOGY LABORATORY Final Diagnosis Specimen A. SKIN, right chest: PERIVASCULAR AND INTERSTITIAL MIXED INFLAMMATORY INFILTRATE (L50.9) CHRONIC PERIFOLLICULITIS WITH PITYROSPORUM (L73.8) (see microscopic description and comment) 11:16 AM [facility] DERMATOPATHOLOGY LABORATORY at [address]ACH[employer] Clinical History Prurigo vs other. Path# [id number] 11:16 AM [facility] DERMATOPATHOLOGY [facility]ORAT[facility] Gross Description Specimen A: Received is one formalin filled container labeled with the patient's name and designated right chest. The specimen consists of a shave biopsy measuring [id number]. Jar 0. 11:16 AM [facility] DERMATOPATH[facility]Y [facility] Microscopic Description Specimen A. [...] erythemas. Clinical correlation is recommended. 11:16 AM [facility] DERMATOPATHOLOGY [facility]ORATORY Disclaimer An external and internal positive and negative controls are appropriate for the histochemical, immunohistochemical and immunofluorescence stain(s) in this case (if any), except where stated explicitly. The performance characteristics of the stain(s) cited in this report were developed and its performance characteristic determined by the Dermatopathology Laboratory at [facility], directed by Dr. Lewis Travis. These tests need not be, and therefore are not, approved by the [place] Food and Drug Administration. The tests are used for clinical purposes. Billing Codes Specimen Charges Stain Charges 72342 1 71527 1 11:16 AM [facility] DERMATOPATH[facility] Embedded Images 11:16 AM [facility] DERMAT[facility] Pathology/Cytolog y TISSUE SPECIMEN FROM SKIN / Unknown 01/20/2021 01/22/2021 8:12 AM [facility] us Garrick Levy MD LAB - PATHOLOGY/CYTOLOGY ORDER HAL Final Result DERMATOPATHOLOGY LABORATORY [facility] - Department of Dermatology [address] [phone] documented in this encounter Visit Diagnoses Not on filedocumented in this encounter Care Teams Molder Machine Tender Relationship Specialty Start Date End Date Jaclyn Salter PA [address] [place] [address] PCP - General 10/14/21 documented as of this encounter
--- OUTSIDE RECORDS SUMMARY | 2024-10-03 14:02 | XMS_ITS | Clinical Summary ---
Author Organization [facility] Address [address] [place] [address] Care Team Providers Care Technical Writer And Editor Name Role Phone Jaclyn Salter PA-C Primary Care Provider [phone] Allergies Active Allergy Reactions Criticality Noted Date [...] A M CDT Height 166.4 cm (5' 5.5) 05/04/2023 12:14 AM CD T Body Mass [...] - 2023-2 5 season) 2023 11/08/2020, 10/18/2020 Pneumococcal Vaccine: 50+ Years (1 of 1 - PCV) 2024 Zoster Vaccines (1 of 2) 2024 DTaP, [...] VIEW RT DIGI Routine 04/10/2019 10:00 AM VISUAL COORDINATOR Abnormal mammogram THINPREP IMAGING SYSTEM PAP Routine 11/13/2012 10:47 AM CDT from Last 3 Months or Most Recently Relevant to Health Maintenance Results * MG DIAG ADD VIEW RT DIGI (04/10/2019 10:00 AM VISUAL COORDINATOR) Anatomical Region Laterality Modality Breast Right Mammography, Rad iographic Imaging 04/10/2019 10:3 3 AM VISUAL COORDINATOR Narrative 04/10/2019 10:35 AM VISUAL COORDINATOR RIGHT BREAST DIAGNOSTIC MAMMOGRAPHY WITH COMPUTER AIDED [...] Comment: Patient Name: CHLOE SUÁREZ Specimen #: [id number] Procedure Date: 11/13/2012 /Age: 02 1975 (Age: 37) Gender: F Accessioned: 11/14/2012 Address: [address] [place] [address] Reported: 11/19/2012 Encounter: [id number] Location: [facility] Physician(s): ALVIN GILES MD : CYTOPATHOLOGY - GYNECOLOGIC REPORT Diagnosis: TEST NAME: THINPREP PAP WITH PILOT MANAGER,REFLEX HPV-ASCUS ONLY INTERPRETATION/RESULT: EPITHELIAL CELL ABNORMALITY: ATYPICAL [...] Electronically Signed sab11/22/2012 Specimen: THINPREP PAP WITH PILOT MANAGER,REFLEX HPV-ASCUS ONLY Clinical Diagnosis and History Date [...] 11/13/2012 10:47 AM CDT [Task Forward[facility] to [facility]] colposcopy Alvin Giles MD PATHOLOGY/CYTOLOGY ORDERABLES Ed ited Result - Final [facility] TO EPIC CONVERSION from Last 3 Months or Most Recently Relevant to [place] [address] Advance Directives * Full Code (Latest Code Status on File) Date Activated Date Inactivated Comments 07/12/2019 3:15 PM 07/12/2019 11:11 PM Care Teams Technical Writer And Editor Relationship Specialty Start Date End Date Jaclyn Salter PA-C PCP - General NURSE PRACTITIONER 07/08/19
--- OUTSIDE RECORDS SUMMARY | 2024-10-03 14:02 | XMS_ITS | Clinical Summary ---
Author Organization [facility] Address [address] [facility] [place] [address] Care Team Providers Care Cigar Head Stringer Name Role Phone Jaclyn Salter Primary Care Provider [phone] Source Comments [facility],non-owned Affiliates and Associated Physician Practices is amultiple site organization consisting of ambulatory clinics and hospital sitesin [place], [place] and [place]. This disclosure is being madepursuant to the Care Everywhere program and may not contain all information available regarding this patient. Last updated 17.[facility] [employer] Social History Tobacco Use Types Packs/Day Years Used Date Smoking Tobacco: Never Assessed Comments Unknown Sex and Gender Information Value Date Recorded Sex Assigned at Not on file Legal Sex Female 4:29 PM HAIRSPRING STUDDER Gender Identity Not on file Sexual Orientation [...] SCREENING 1975 LIPID TESTING 1975 MAMMOGRAM 1975 HIV SCREENING 1989 HEPATITIS C SCREENING 04/06/1992 DTAP/TDAP/TD VACCINES (1 - Tdap) 1993 HEPATITIS B VACCINE (1 of 3 - 19+ 3-dose series) 1993 COVID-19 VACCINE ( - 2023-2 5 season) 2023 DEPRESSION SCREENING 02/21/2024 PNEUMOCOCCAL VACCINE 50+ (1 of 1 - PCV) 2024 ZOSTER VACCINE (1 of 2) 2024 INFLUENZA VACCINE (#1) 2024 HIB VACCINE Aged Out No longer [...] age to complete this topic Care Teams Cigar Head Stringer Relationship Specialty Start Date End Date Jaclyn Salter PA [address] [place] [id number] PCP - General 10/14/21
--- OUTSIDE RECORDS SUMMARY | 2024-10-03 14:02 | XMS_ITS ---
Author Organization [facility] [place] ([address]) Address [address] [place] [address] Care Team Providers Care Monkey Trainer Name Role Phone Priscilla Salter Primary Care Provider Unavailab Cheo Harris Unavailable [phone] ZZ-Migration, Provider Unavailable Unavailab le Allergies Allergen (clinical drug ingredient) Drug/Non Drug Allergy documented on EMR Reaction Allergy Type Onset Date Status indomethacin Indomethacin other reaction Drug Allergy Active sulfadiazine sulfADIAZINE hives Drug Allergy A ctive [facility] Conversion Encounter Medications Medication SIG (Take, [...] Not-Taking Encounters Encounter Location Date Provider Diagnosis [address] [address] 08/05/2023 Provider ZZ-Migration Plan Of Treatment No Information Progress Notes * Francoise BANERJEEB:1975 ( 49 yo F)Acc No.[id number]:08/05/2023 Patient: Aida CANALES Provider: Saúl Romo :1975 A ge:48 Y S ex:Female Date:08/05/2023 Address:[address] [place], [place] [id number] Pcp:Priscilla Salter Subjective: * Chief Complaints: * [...] * Electronic signature of Marlon TEJEDA-Migration on 10/03/2024 at 02:02 PM CDT Sign off status: Pending * Provider: Saúl cortes Migration Date: 08/05/2023 Generated for Shilpa cifuentes/Hector/Tamra on: 10/03/2024 02:02 PM CDT
--- OUTSIDE RECORDS SUMMARY | 2024-10-03 14:02 | XMS_ITS | Encounter Summary ---
Author Organization [facility] Address [address] [place] [address] Care Team Providers Care Glacing Machine Tender Name Role Phone Jaclyn Salter PA-C Primary Care Provider [phone] Encounter Details Date Type Department Care Team (Late st Contact Info) Description 07/08/2019 Prep for Procedure [facility] Pre-Admission Testing [facility] [address] [place], [place] [id number] Laura Hernadez, [address] [place] [address] Social History Tobacco Use Types [...] PREG SCREEN-SERUM NEGATIVE 07/12/2019 11:31 AM CDT [facility] 07/12/2019 10:5 9 AM CDT Beverley Tracy COUNTY DIRECTOR WELFARE LABORATORY Final R esult [facility] [address] [place] [address], * PRE-SURGICAL/PRE-PROCEDURE CORONAVIRUS (COVID 19) (07/09/2019 3:00 PM CDT) CORONAVIRUS SARS COV 2 PCR (RESP) NOT DETECTED NOT DETECTED 07/10/2019 5:14 PM CDT [facility] Comment: A Not Detected (negative) test result [...] providers and patients using the following websites: https://www.Pricing Engine.com/home/Covid-19/HCP/QuestIVD/fact- sheet.html https://www.Pricing Engine.Micronotes/home/Covid-19/Patients/ QuestIVD/fact-sheet.html This test has been authorized by the FDA under an Emergency Use Authorization (EUA) for use by authorized laboratories. Due to the current public health emergency, [facility] is receiving a high volume of samples [...] about COVID-19 can be found at the [facility] website: www.Gift Card Impressions.Micronotes/Covid19. Test performed at [facility] [address] [place] [address] Director: CARMEN COUCH DO,MPH NASOPHARYNGEAL SWAB / Unknown 07/09/2019 3:00 PM CDT us Laura Hernadez DO MICROBIOLOGY - GENERAL ORDE [facility] Final Result [facility] [id number] [place] [address] documented in this encounter Visit Diagnoses Diagnosis Preop examination- Primary Preoperative examination, unspecified documented in this encounter Additional Health Concerns Infection Onset Date Last Indicated Resolved Time COVID-19 Rule Out 07/09/2019 07/09/2019 07/10/2019 5:14 PM CDT documented as of this encounter Care Teams Glacing Machine Tender Relationship Specialty Start Date End Date Jaclyn Salter PA-C PCP - General NURSE PRACTITIONER 07/08/19 documented as of this encounter
--- OUTSIDE RECORDS SUMMARY | 2024-10-03 14:02 | XMS_ITS | Clinical Summary ---
Author Organization [facility] [address] [facility] Address [address] [place] [address] Care Team Providers Care Treating Inspector Name Role Phone Jaclyn Salter Primary Care Provider [phone] Benson Newman MD Unavailable Allergies Active Allergy Reactions Criticality Noted Date [...] joint. Assessment & Plan (01/11/2021 10:09 AM WOOLEN SUITING SHRINKER): 45yoF referred for evaluation due to rash, joint pain/stiffness, muscle weakness, and labs showing +KISHA with FIRE MEDIC 1.1. She denies any inflammatory sounding joint [...] 1:320 with otherwise unremarkable serologies including the FIRE MEDIC, xrays with L SI joint OA, and [...] muscle weakness, and labs showing +KISHA with FIRE MEDIC 1.1. She denies any inflammatory sounding joint [...] and her strength is appropriate throughout. The +FIRE MEDIC can be seen in the setting of [...] Comments Blood Pressure 142/100 01/11/2021 8:38 AM WOOLEN SUITING SHRINKER Pulse 92 01/11/2021 8:38 AM WOOLEN SUITING SHRINKER Temperature 36 C (96.8 F) 01/11/2021 8:38 AM WOOLEN SUITING SHRINKER Respiratory Rate - - Oxygen Saturation 99% 01/11/2021 8:38 AM WOOLEN SUITING SHRINKER Inhaled Oxygen Concentration - - Weight 84.8 kg (187 lb) 01/11/2021 8:38 AM WOOLEN SUITING SHRINKER Height - - Body Mass Index - - Plan of Treatment Not on file Insurance [employer] Care Teams Treating Inspector Relationship Specialty Start Date End Date Jaclyn Salter PA [address] [place] [address] PCP - General Family Practice 11/26/20 Benson Newman MD [address] [place] [address] Consulting Physician Rheumatology 11/26/20
--- OUTSIDE RECORDS SUMMARY | 2024-10-03 14:02 | XMS_ITS | Continuity of Care Document ---
Author Organization [facility] Address [address] [place] [address] Phone Care Team Providers Care Student Finance Advisor Name Role Phone Desmond Vieyra MD Unavailable [...] Diagnoses Date Provider Providers Copied on Encounter [facility], [facility], [address] [place] [address], [id number], tel:[phone] [facility] No Information Jarrell Logan. [address] [place] [address], [id number], [place]. tel:[phone] [facility], [facility], [address] [place] [address], [id number], tel:[phone] [facility] No Information Jarrell Logan. [address] [place] [address], [id number], [place]. tel:[phone] [facility], [facility], [address], [place], [id number], [place] tel:[phone] [facility] No Information Jarrell Logan. [address] [place], [place], [id number], [place]. tel:[phone] Family History Family Member Type Diagnosis Age [...]
== END 2024-10-03 13:55 | disposition home or self-care (01) ==
PROVIDERS: PCP Nurse Practitioner Family; Visit Provider Psychiatry & Neurology Neurology
DX: R56.9 Unspecified convulsions (principal); G62.9 Polyneuropathy, unspecified
CPT/HCPCS: 84146

== ENCOUNTER 2024-11-21 10:04 | Outpatient (CLI) | payer BC, SELFPAY ==
--- OUTSIDE RECORDS SUMMARY | 2011-03-15 06:36 | XMS_ITS | Continuity of Care Document ---
Author Organization [facility], TD Address [address] [place] [phone] Phone Care Team Providers Care Belt Molder Name Role Phone Desmond Vieyra MD Unavailable [...] Diagnoses Date Provider Providers Copied on Encounter [facility], [facility], [address] [place] [address], [id number], tel:[phone] [facility] No Information Jarrell Logan. [address] [place] [address], [id number], [place]. tel:[phone] [facility], [facility], [address] [place] [address], [id number], tel:[phone] [facility] No Information Jarrell Logan. [address] [place] [address], [id number], [place]. tel:[phone] [facility], [facility], [address], [place], [id number], [place] tel:[phone] [facility] No Information Jarrell Logan. [address], [place], [id number], [place]. tel:[phone] Family History Family Member Type Diagnosis Age At Onset No Information Payers Payer name Insurance type Covered democrat ID Authoriza tion(s) No Information Social History [...]
--- OUTSIDE RECORDS SUMMARY | 2023-08-05 16:30 | XMS_ITS ---
Author Organization [facility] [place] ([address]) Address [address] [place] [address] Care Team Providers Care Ethernet Network Architect Name Role Phone Priscilla Salter Primary Care Provider Unavailab Cheo Harris Unavailable [phone] [facility], Provider Unavailable Unavailab le Allergies Allergen (clinical drug ingredient) Drug/Non Drug Allergy documented on EMR Reaction Allergy Type Onset Date Status indomethacin Indomethacin other reaction Drug Allergy Active sulfadiazine sulfADIAZINE hives Drug Allergy A ct[facility] Conversion Encounter Medications Medication SIG (Take, [...] Not-Taking Encounters Encounter Location Date Provider Diagnosis [address] [address] 08/05/2023 Provider ZZ-Migration Plan Of Treatment No Information Progress Notes * Francoise BANERJEEB:1975 ( 49 yo F)Acc No.[id number]:08/05/2023 Patient: Aida CANALES Provider: Saúl Romo :1975 A ge:48 Y S ex:Female Date:08/05/2023 Address:[address] [place], [place] [phone] Pcp:Priscilla Salter Subjective: * Chief Complaints: * [...] Taking Triamcinolone Acetonide 0.1 % Ointment 1 haja [...] * Electronic signature of Marlon TEJEDA-Migration on 11/21/2024 at 10:41 AM CDT Sign off status: Pending * Provider: Saúl cortes Migration Date: 0 08/05/2023 Generated for Shilpa cifuentes/Hector/Tamra on: 10:41 AM CDT
--- OUTSIDE RECORDS SUMMARY | 2024-11-21 10:41 | XMS_ITS | Clinical Summary ---
Author Organization [facility] Address [address] [facility] [place] [address] Care Team Providers Care Register Clerk Name Role Phone Jaclyn Salter Primary Care Provider Source Comments [facility],non-owned Affiliates and Associated Physician Practices is amultiple site organization consisting of ambulatory clinics and hospital sitesin [place], [place], [place] and [place]. This disclosure is being madepursuant to the Care Everywhere program and may not contain all information available regarding this patient. Last updated 17.[facility] [employer] Social History Tobacco Use Types Packs/Day Years Used Date Smoking Tobacco: Never Assessed Comments Unknown Sex and Gender Information Value Date Recorded Sex Assigned at Not on file Legal Sex Female 4:29 PM PRIVATE CHEF Gender Identity Not on file Sexual Orientation [...] of 3 - 19+ 3-dose series) 1993 DEPRESSION SCREENING 02/21/2024 PNEUMOCOCCAL VACCINE 50+ (1 of 1 - PCV) 2024 ZOSTER VACCINE (1 of 2) 2024 COVID-19 VACCINE (1 - 2023-2 5 season) 2024 INFLUENZA VACCINE (#1) 2024 HIB VACCINE [...] age to complete this topic Care Teams Register Clerk Relationship Specialty Start Date End Date Jaclyn Salter PA [address] [place] [address] PCP - General 10/14/21
--- OUTSIDE RECORDS SUMMARY | 2024-11-21 10:41 | XMS_ITS | Patient Health Record ---
Author Organization [facility] ([address]) Address [address] [place] [address] Care Team Providers Care Automated Teller Manager Name Role Phone Tai Salterah Primary Care Provider Unavailab Cheo Harris Unavailable [phone] Allergies Allergen (clinical drug ingredient) Drug/Non Drug [...] prior to SCIT; Duration: 30 days Active AUVI -Q 0.3 mg as directed intramuscularly once; Duration: 30 days Active Belsomra 10 MG 1 tab(s) orally once a day (at bedtime) Active CETIRIZINE 10 mg 1 tab(s) orally once a day; Duration: 30 days Active FLUTICASONE NASAL 50 mcg/inh 2 spray(s) in each nostril BID; Duration: 30 day(s) Active EPIPEN 2-JM 0.3 mg as directed intramuscularly once; Duration: 90 days 04/18/2022 Active PROPRANOLOL 60 mg 1 tab(s) orally 2 times a day takes once a day Active Triamcinolone Acetonide 0.1 % 1 haja applied topically 3 times a day; Duration: 30 day(s) 07/05/2022 Active DULOXETINE 60 mg 1 cap(s) orally once a day Active SIT (CLUSTER) VARIABLE PER SCHEDULE SC PER SCHEDULE; Duration: TO BE DETERMINED *Please review for potential replacement for e-prescription and drug interaction check* Active Montelukast Sodium 10 MG 1 tab(s) orally once a day; Duration: 30 day(s) Active FLUOCINONIDE TOPICAL 0.05% 1 haja applied topically 3 times a day uses prn itch Active BELSOMRA 10 mg 1 tab(s) orally once a day (at bedtime) Active Auvi-Q 0.3 MG/0.3ML as directed intramuscularly once; Duration: 30 days Active CLONAZEPAM 0.5 mg 1 tab(s) orally 3 times a day takes one pill daily Active Famotidine 40 MG 1 tab(s) orally 30 mins prior to SCIT; Duration: 30 days Active BUPROPION 75 mg 1 tab(s) orally 3 times a day Not-Taking TRIAMCINOLONE ACETONIDE TOPICAL 0.1% 1 haja applied topically 3 times a day; Duration: 30 day(s) Active EpiPen 2-Jm 0.3 MG/0.3ML [...] once a day; Duration: 30 days Active MONTELUKAST 10 mg 1 tab(s) orally once a day; Duration: 30 day(s) Active Fluocinonide 0.05 % 1 haja applied topically 3 times a day uses prn itch Active clonazePAM 0.5 MG 1 tab(s) orally 3 times a day takes one pill daily Active DULoxetine HCl 60 MG 1 cap(s) orally once a day Active TRIAMCINOLONE ACETONIDE TOPICAL 0.1% 1 haja applied topically 3 times a day; Duration: 30 day(s) 07/05/2022 Active Propranolol HCl 60 MG 1 tab(s) orally 2 times a day takes once a day Active Social History Tobacco Use: Social History Observation Description Date Details (start date - stop date) Light tobacco s brett NA - NA Smoking Smart Form: Question Answer Notes Are you a: light tobacco smoker Problems Problem Type SNOMED Code ICD Code Onset Dates Problem Status W/U Status Risk Notes Problem Chronic allergic conjunctivitis (18317382) Other chronic allergic conjunctivitis (H10.45) Active confirmed Problem Allergic rhinitis caused by pollen (disorder) (31239718) Allergic rhinitis due to pollen (J30.1) Active confirmed Problem Allergic rhinitis caused by animal hair and dander (857312834291851) Allergic rhinitis due to animal (cat) (dog) hair and dander (J30.81) Active confirmed Problem Allergic rhinitis (91847761) Other allergic rhinitis (J30.89) Active confirmed Problem Prurigo nodularis (78577496) Prurigo nodularis (L28.1) Active confirmed Problem Dermatitis (679958757) Dermatitis, unspecified (L30.9) Active confirmed Problem Allergic rhinitis caused by pollen (disorder) (53359581) Allergic rhinitis due to pollen (J30.1) Active confirmed Problem Allergic rhinitis caused by animal hair and dander (858480066432896) Allergic rhinitis due to animal (cat) (dog) hair and dander (J30.81) Active confirmed Problem Allergic rhinitis (96278430) Other allergic rhinitis (J30.89) Active confirmed Problem Chronic allergic conjunctivitis (85195054) Other chronic allergic conjunctivitis (H10.45) Active confirmed Problem Allergic contact dermatitis caused by chemical (6349571433747332 3) Allergic contact dermatitis due to other chemical products (L23.5) Active confirmed Problem Eruption of skin (209925186) Rash and other nonspecific skin eruption (R21) Active confirmed Problem Allergic contact dermatitis caused by metal and/or metal compound (disorder) (1751207428) Allergic contact dermatitis due to metals (L23.0) Active confirmed Problem Elevated blood pressure reading without diagnosis of hypertension (738667117) Elevated blood-pressure reading, without diagnosis of hypertension (R03.0) Active confirmed Plan Of Treatment No Information Insurance Providers Payer Name Payer Address Payer Phone Subscriber Number Group Number Insured Name Patient Relationship to Insured Coverage Start Date Coverage End Date [facility] [address] [address] [place] [phone] [id number] Jorge Banerjee Spouse - patient is the [...]
--- OUTSIDE RECORDS SUMMARY | 2024-11-21 10:41 | XMS_ITS | Clinical Summary ---
Author Organization [facility] Address [address] [place] [address] Care Team Providers Care Dobie Man Name Role Phone Jaclyn Salter PA-C Primary Care Provider [phone] Allergies Active Allergy Reactions Criticality Noted Date [...] HPV 11/14/2015 Mammogram Screening 04/10/2021 04/10/2019, 03/12/2019 Pneumococcal Vaccine: 50+ Years (1 of 1 - PCV) 2024 Zoster Vaccines (1 of 2) 2024 COVID-19 Vaccine (3 - 2024-2 6 season) 2024 11/08/2020, 10/18/2020 DTaP, Tdap and Td Vaccines ( 2 [...] VIEW RT DIGI Routine 04/10/2019 10:00 AM ADMISSIONS ADVISOR Abnormal mammogram THINPREP IMAGING SYSTEM PAP Routine 11/13/2012 10:47 AM CDT from Last 3 Months or Most Recently Relevant to Health Maintenance Results * MG DIAG ADD VIEW RT DIGI (04/10/2019 10:00 AM ADMISSIONS ADVISOR) Anatomical Region Laterality Modality Breast Right Mammography, Rad iographic Imaging 04/10/2019 10:3 3 AM ADMISSIONS ADVISOR Narrative 04/10/2019 10:35 AM ADMISSIONS ADVISOR RIGHT BREAST DIAGNOSTIC MAMMOGRAPHY WITH COMPUTER AIDED [...] Comment: Patient Name: CHLOE SUÁREZ Specimen #: [id number] Procedure Date: 11/13/2012 /Age: 02 1975 (Age: 37) Gender: F Accessioned: 11/14/2012 Address: [address] [place] [address] Reported: 11/19/2012 Encounter: [id number] Location: [facility] Physician(s): ALVIN GILES MD : CYTOPATHOLOGY - GYNECOLOGIC REPORT Diagnosis: TEST NAME: THINPREP PAP WITH SAW TAILER,REFLEX HPV-ASCUS ONLY INTERPRETATION/RESULT: EPITHELIAL CELL ABNORMALITY: ATYPICAL [...] Electronically Signed sab11/22/2012 Specimen: THINPREP PAP WITH SAW TAILER,REFLEX HPV-ASCUS ONLY Clinical Diagnosis and History Date [...] 11/13/2012 10:47 AM CDT [Task Forward[facility]] colposcopy Alvin Giles MD PATHOLOGY/CYTOLOGY ORDERABLES Ed ited Result - Final [employer] TO EPIC CONVERSION from Last 3 Months or Most Recently Relevant to Health Maintenance Insurance Advance Directives * Full Code (Latest Code Status on File) Date Activated Date Inactivated Comments 07/12/2019 3:15 PM 07/12/2019 11:11 PM Care Teams Dobie Man Relationship Specialty Start Date End Date Jaclyn Salter PA-C PCP - General NURSE PRACTITIONER 07/08/19
--- OUTSIDE RECORDS SUMMARY | 2024-11-21 10:41 | XMS_ITS | Encounter Summary ---
Author Organization [facility] Address [address] [place] [address] Care Team Providers Care Make Up Operator Name Role Phone Jaclyn Salter PA-C Primary Care Provider [phone] Encounter Details Date Type Department Care Team (Late st Contact Info) Description 07/08/2019 Prep for Procedure [facility] Pre-Admission Testing [facility] [address] [place], [place] [id number] Laura Hernadez, [address] [place] [address] Social History Tobacco Use Types [...] PREG SCREEN-SERUM NEGATIVE 07/12/2019 11:31 AM CDT [facility] 07/12/2019 10:5 9 AM CDT Beverley Tracy TRANSMISSION OPERATOR LABORATORY Final R esult [facility] [address] [place] [address], * PRE-SURGICAL/PRE-PROCEDURE CORONAVIRUS (COVID 19) (07/09/2019 3:00 PM CDT) CORONAVIRUS SARS COV 2 PCR (RESP) NOT DETECTED NOT DETECTED 07/10/2019 5:14 PM CDT [facility] Comment: A Not Detected (negative) test [...] providers and patients using the following websites: https://www.[employer] Holdings.com/home/Covid-19/HCP/QuestIVD/fact- sheet.html https://www.[employer].Adonit/home/Covid-19/Patients/ QuestIVD/fact-sheet.html This test has been authorized by the FDA under an Emergency Use Authorization (EUA) for use by authorized laboratories. Due to the current public health emergency, [facility] is receiving a high volume of samples [...] about COVID-19 can be found at the [facility] website: www.[employer].Adonit/Covid19. Test performed at [facility] [place] [address] [place] [address] Director: CARMEN COUCH DO,MPH NASOPHARYNGEAL SWAB / Unknown 07/09/2019 3:00 PM CDT us Laura Hernadez DO MICROBIOLOGY - [facility]AL [facility]DE [facility] Final Result [facility] [address] [place] [address] documented in this encounter Visit Diagnoses Diagnosis Preop examination- Primary Preoperative examination, unspecified documented in this encounter Additional Health Concerns Infection Onset Date Last Indicated Resolved Time COVID-19 Rule Out 07/09/2019 07/09/2019 07/10/2019 5:14 PM CDT documented as of this encounter Care Teams Make Up Operator Relationship Specialty Start Date End Date Jaclyn Salter PA-C PCP - General NURSE PRACTITIONER 07/08/19 documented as of this encounter
--- OUTSIDE RECORDS SUMMARY | 2024-11-21 10:41 | XMS_ITS | Clinical Summary ---
Author Organization [facility] [address] [facility] Address [address] [place] [address] Care Team Providers Care Typing Bookkeeper Name Role Phone Jaclyn Salter Primary Care Provider [phone] Benson Newman MD Unavailable [phone] Allergies Active Allergy Reactions Criticality Noted Date [...] joint. Assessment & Plan (01/11/2021 10:09 AM POWDER COAT PAINTER): 45yoF referred for evaluation due to rash, joint pain/stiffness, muscle weakness, and labs showing +KISHA with DESIGNER ARCHITECT 1.1. She denies any inflammatory sounding joint [...] 1:320 with otherwise unremarkable serologies including the DESIGNER ARCHITECT, xrays with L SI joint OA, and [...] muscle weakness, and labs showing +KISHA with DESIGNER ARCHITECT 1.1. She denies any inflammatory sounding joint [...] and her strength is appropriate throughout. The +DESIGNER ARCHITECT can be seen in the setting of [...] Comments Blood Pressure 142/100 01/11/2021 8:38 AM POWDER COAT PAINTER Pulse 92 01/11/2021 8:38 AM POWDER COAT PAINTER Temperature 36 C (96.8 F) 01/11/2021 8:38 AM POWDER COAT PAINTER Respiratory Rate - - Oxygen Saturation 99% 01/11/2021 8:38 AM POWDER COAT PAINTER Inhaled Oxygen Concentration - - Weight 84.8 kg (187 lb) 01/11/2021 8:38 AM POWDER COAT PAINTER Height - - Body Mass Index - - Plan of Treatment Not on file Insurance [employer]M [employer] Care Teams Typing Bookkeeper Relationship Specialty Start Date End Date Jaclyn Salter PA [address] [place] [address] PCP - General Family Practice 11/26/20 Benson Newman MD [address] [place] [address] Consulting Physician Rheumatology 11/26/20
--- OUTSIDE RECORDS SUMMARY | 2024-11-21 10:41 | XMS_ITS | Encounter Summary ---
Author Organization [facility] Address [address] [facility] [place] [address] Care Team Providers Care Sail Lay Out Worker Name Role Phone Jaclyn Salter Primary Care Provider Encounter Details Date Type Department Care Team (Late st Contact Info) Description 01/22/[address] [facility] [address] [place] [address] Garrick Levy MD [address] [place] [address] Social History Tobacco Use Types Packs/Day Years Used Date Smoking Tobacco: Never Assessed Comments Unknown Sex and Gender Information Value Date Recorded Sex Assigned at Not on file Legal Sex Female 4:29 PM LOCKER PLANT ATTENDANT Gender Identity Not on file Sexual Orientation Not on file documented as of this encounter Plan of Treatment Not on file documented as of this encounter Procedures Procedure Name Priority Date/Time Associated Diagnosis Comments DERMATOPATHOLOGY Routine 01/20/2021 12:0 0 AM LOCKER PLANT ATTENDANT documented in this encounter Results * DERMATOPATHOLOGY (01/20/2021 12:00 AM LOCKER PLANT ATTENDANT) Case Report Dermatopathology Report Case: [id number] Authorizing Provider: Garrick Levy MD Collected: 01/20/2021 12:00 AM Ordering Location: [facility] Received: 01/22/2021 08:12 AM Pathologist: Christy Galloway MD Specimen: Skin, right chest 11:16 AM LOCKER PLANT ATTENDANT DERMATOPATHOLOGY LABORATORY Final Diagnosis Specimen A. SKIN, right chest: PERIVASCULAR AND INTERSTITIAL MIXED INFLAMMATORY INFILTRATE (L50.9) CHRONIC PERIFOLLICULITIS WITH PITYROSPORUM (L73.8) (see microscopic description and comment) 11:16 AM [facility] at [address] LOCKER PLANT ATTENDANT Clinical History Prurigo vs other. Path# [id number] 11:16 AM [facility] Gross Description Specimen A: Received is one formalin filled container labeled with the patient's name and designated right chest. The specimen consists of a shave biopsy measuring [id number]. Jar 0. 11:16 AM [facility] Microscopic Description Specimen A. SKIN, [...] erythemas. Clinical correlation is recommended. 11:16 AM [facility] DERMATOPATH[facility]Y [facility]ORY Disclaimer An external and internal positive and negative controls are appropriate for the histochemical, immunohistochemical and immunofluorescence stain(s) in this case (if any), except where stated explicitly. The performance characteristics of the stain(s) cited in this report were developed and its performance characteristic determined by the Dermatopathology Laboratory at [facility], directed by Dr. Lewis Travis. These tests need not be, and therefore are not, approved by the [place] Food and Drug Administration. The tests are used for clinical purposes. Billing Codes Specimen Charges Stain Charges 42297 1 00523 1 11:16 AM [facility] Embedded Images 11:16 AM [facility] Pathology/Cytolog y TISSUE SPECIMEN FROM SKIN / Unknown 01/20/2021 01/22/2021 8:12 AM [facility] us Garrick Levy MD LAB - PATHOLOGY/CYTOLOGY ORDER HAL Final Result DERMATOPATHOLOGY LABORATORY [facility] - Department of Dermatology [facility] [address] [facility], [address]rd Floor [address] [phone] documented in this encounter Visit Diagnoses Not on filedocumented in this encounter Care Teams Sail Lay Out Worker Relationship Specialty Start Date End Date Jaclyn Salter PA [address] [place] [address] PCP - General 10/14/21 documented as of this encounter
--- NOTE | 2024-11-21 12:00 | NEURO_ITS ---
Clinical note: Patient is 49 years old with complaints of paresthesias in both lower limbs and lower back pain. The patient has had falls within the past 1 year. On a brief neurological examination no focal muscle wasting or fasciculations or weakness were noted in the lower limb muscles. There is no history of diabetes mellitus. The results of the nerve conduction study and EMG are given below. Summary of findings: 1. Left and right peroneal motor distal latencies and amplitudes and conduction velocity within normal limits. There is no focal slowing across the fibular head. 2. Left and right tibial motor distal latencies and amplitude and conduction velocity within normal limits. 3. Left and right sural sensory distal latencies and amplitudes were within acceptable normal limits however conduction velocity mildly decreased. Left and right medial plantar and right lateral plantar sensory distal latencies amplitudes were within normal limits. Left lateral plantar sensory response was absent or unobtainable. 4. left and right tibial H-reflex latencies were within normal limits however amplitudes decreased on the left than right side. 5. EMG examination was performed with various muscles examined in both lower limbs as well as related paraspinal muscles including bilateral abductor digiti quinti. No myopathic patterns were seen. Motor unit amplitude duration and recruitment pattern within normal limits. No denervation changes were seen. Impression: EMG nerve can study of both lower limbs are considered essentially within acceptable normal limits. Left lateral plantar sensory was unobtainable . Also the left tibial H-reflex amplitude was decreased compared to the right side.However the remainder of the findings are considered within acceptable normal limits. Greer Duncan MD, FAAN, FAANEM Neurology and electrodiagnostic Medicine Nerve Conduction Studies Motor Nerve Results ? Latency Amplitude F-Lat Segment Distance CV Comment Site (ms) (mV) (ms) (cm) (m/s) Left Peroneal (EDB) Motor Ankle 3.8 3.4 Bel Fib Head 10.7 3.2 Bel Fib Head-Ankle 300 43 Pop Fossa 12.1 3.2 Pop Fossa-Bel Fib Head 65 46 Right Peroneal (EDB) Motor Ankle 3.7 2.7 Bel Fib Head 9.7 2.5 Bel Fib Head-Ankle 275 46 Pop Fossa 11.4 2.5 Pop Fossa-Bel Fib Head 80 47 Left Tibial (AHB) Motor Ankle 5.9 16.7 Knee 15.2 10.9 Knee-Ankle 415 45 Right Tibial (AHB) Motor Ankle 3.4 14.1 Knee 13.0 8.9 Knee-Ankle 420 44 Sensory Nerve Results ? Latency (Peak) Amplitude (P-P) Segment Distance CV Comment Site (ms) (?V) (cm) (m/s) Left Lateral Plantar (Ortho) Sensory Small Toe-Med Mall NR NR Small Toe-Med Mall 90 NR Right Lateral Plantar (Ortho) Sensory Small Toe-Med Mall 3.3 8 Small Toe-Med Mall 120 36 Left Medial Plantar (Ortho) Sensory Great Toe-Med Mall 3.0 22 Great Toe-Med Mall 100 33 Right Medial Plantar (Ortho) Sensory Great Toe-Med Mall 2.9 23 Great Toe-Med Mall 100 34 Left Sural Sensory Calf-Lat Mall 3.5 10 Calf-Lat Mall 120 34 Right Sural Sensory Calf-Lat Mall 3.5 12 Calf-Lat Mall 120 34 H-Reflex Results ? M-Lat H Lat H Peak-Peak Amp M Peak-Peak Amp H-M Lat Site (ms) (ms) mV mV (ms) Left Tibial H-Reflex Pop Fossa - 32.9 1.86 - - Right Tibial H-Reflex Pop Fossa - 33.3 4.2 - - Electromyography ?Side Muscle Nerve Ins Act Fibs Psw Amp Dur Recrt Comment Right BicepsFemS Sciatic Nml Nml Nml Nml Nml Nml Right Semimembranosus Sciatic Nml Nml Nml Nml Nml Nml Right AntTibialis Dp Br Fibular Nml Nml Nml Nml Nml Nml Right Gastroc Tibial Nml Nml Nml Nml Nml Nml Right VastusMed Femoral Nml Nml Nml Nml Nml Nml Right RectFemoris Femoral Nml Nml Nml Nml Nml Nml Right GluteusMax InfGluteal Nml Nml Nml Nml Nml Nml Right TensorFascLat SupGluteal Nml Nml Nml Nml Nml Nml Left BicepsFemS Sciatic Nml Nml Nml Nml Nml Nml Left Semimembranosus Sciatic Nml Nml Nml Nml Nml Nml Left AntTibialis Dp Br Fibular Nml Nml Nml Nml Nml Nml Left Gastroc Tibial Nml Nml Nml Nml Nml Nml Left VastusMed Femoral Nml Nml Nml Nml Nml Nml Left RectFemoris Femoral Nml Nml Nml Nml Nml Nml Left GluteusMax InfGluteal Nml Nml Nml Nml Nml Nml Left TensorFascLat SupGluteal Nml Nml Nml Nml Nml Nml Left L4 Parasp Rami Nml Nml Nml Nml Nml Nml Left L5 Parasp Rami Nml Nml Nml Nml Nml Nml Right L4 Parasp Rami Nml Nml Nml Nml Nml Nml Right L5 Parasp Rami Nml Nml Nml Nml Nml Nml Right AbdDigQuinti LatPlantar Nml Nml Nml Nml Nml Nml Right Rectus Abdom Intercostals Nml Nml Nml Nml Nml Nml
== END 2024-11-21 10:05 | disposition home or self-care (01) ==
LOC: ANHNEURO 10:08
PROVIDERS: PCP Nurse Practitioner Family; Visit Provider Psychiatry & Neurology Neurology
DX: G62.9 Polyneuropathy, unspecified (principal)
CPT/HCPCS: 95886; 95910

== ENCOUNTER 2025-01-01 13:22 | Observation (INO) | payer BC, SELFPAY ==
--- OUTSIDE RECORDS SUMMARY | 2011-03-15 05:36 | XMS_ITS | Continuity of Care Document ---
Author Organization [facility], TD Address [address] [place] [phone] Phone Care Team Providers Care Referral Specialist Name Role Phone Desmond Vieyra MD Unavailable Unavailable Allergies, Adverse Reactions, Alerts Substance Reaction Status Criticality Sulfa (Sulfonamide Antibiotics) Active No Information Medications Medication Instructions Dosage Effective Dates (start - stop) Status Comments CELEXA (unknown strength) Not Available - Active LOMOTIL (unknown strength) Not Available - Active PROBIOTIC (unknown strength) Not Available - Active Procedures Procedure Date CONTACT LENS, DISPOSABLE CONTACT LENS EXAM EYE EXAM, NEW PATIENT VISION REFRACTION OPTIONAL UPDATE Advance Directives Directive Yes / No Effective Date File Name No Information Encounters Encounter Description Practice Location Reason(s) For Visit Diagnoses Date Provider Providers Copied on Encounter [facility], [facility], [address] [place] [address], [id number], tel:[phone] [facility] No Information Jarrell Logan. [address] [place] [address], [id number], [place]. tel:[phone] [facility], [facility], [address] [place] [address], [id number], tel:[phone] [facility] No Information Jarrell Logan. [address] [place] [address], [id number], [place]. tel:[phone] [facility], [facility], [address], [place], [id number], [place] tel:[phone] [facility] No Information Jarrell Logan. [address], [place], [id number], [place]. tel:[phone] Family History Family Member Type Diagnosis Age At Onset No Information Payers Payer name Insurance type Covered alliance party ID Authoriza tion(s) No Information Social History Type Description Quantity Date Captured Comments Sex Female Smoking Status No Information Chief Complaint And Reason For Visit No Information Reason For Referral Reason For Referral No Information History Of Present Illness Encounter Date Complaint History Of Prese nt Illness No Information Functional Status Date Functional Assessmen t No Information Instructions Date Instruction Additional Infor mation No Information Assessments Type Assessment Date No Information Patient Care Teams Name Effective Dates (start - stop) Status Members No Information
--- OUTSIDE RECORDS SUMMARY | 2011-03-15 05:36 | XMS_ITS | Continuity of Care Document ---
Author Organization [facility], TD Address [address] [place] [phone] Phone Care Team Providers Care Wharf Tender Name Role Phone Desmond Vieyra MD Unavailable Unavailable Allergies, Adverse Reactions, Alerts Substance Reaction Status Criticality Sulfa (Sulfonamide Antibiotics) Active No Information Medications Medication Instructions Dosage Effective Dates (start - stop) Status Comments PROBIOTIC (unknown strength) Not Available - Active LOMOTIL (unknown strength) Not Available - Active CELEXA (unknown strength) Not Available - Active Procedures Procedure Date CONTACT LENS, DISPOSABLE CONTACT LENS EXAM EYE EXAM, NEW PATIENT VISION REFRACTION OPTIONAL UPDATE Advance Directives Directive Yes / No Effective Date File Name No Information Encounters Encounter Description Practice Location Reason(s) For Visit Diagnoses Date Provider Providers Copied on Encounter [facility], [facility], [address] [place] [address], [id number], tel:[phone] [facility] No Information Jarrell Logan. [address] [place] [address], [id number], [place]. tel:[phone] [facility], [facility], [address] [place] [address], [id number], tel:[phone] [facility] No Information Jarrell Logan. [address] [place] [address], [id number], [place]. tel:[phone] [facility], [facility], [address] [place], [place], [id number], [place] tel:[phone] [facility] No Information Jarrell Logan. [address], [place], [id number], [place]. tel:[phone] Family History Family Member Type Diagnosis Age At Onset No Information Payers Payer name Insurance type Covered constitution party ID Authoriza tion(s) No Information Social [...]
--- OUTSIDE RECORDS SUMMARY | 2023-08-05 15:30 | XMS_ITS ---
Author Organization [facility] ([address]) Address [address] [place] [address] Care Team Providers Care Material Assistant Name Role Phone Priscilla Salter Primary Care Provider Unavailab Cheo Harris Unavailable [phone] [facility], Provider Unavailable Unavailab le Allergies Allergen (clinical drug ingredient) Drug/Non Drug Allergy documented on EMR Reaction Allergy Type Onset Date Status indomethacin Indomethacin other reaction Drug Allergy Active sulfadiazine sulfADIAZINE hives Drug Allergy A ctive [facility] Conversion Encounter Medications Medication SIG (Take, Route, Frequency, Duration) Notes Start Date End Date Status NASAL WASHES N/A DIRECTED INTRANASALLY NEEDED; Duration: 30 *Please review for potential replacement for e-prescription and drug interaction check* Active Auvi-Q 0.3 MG/0.3ML as directed intramuscularly once; Duration: 30 days Active Triamcinolone Acetonide 0.1 % 1 haja applied topically 3 times a day; Duration: 30 day(s) 07/05/2022 Active SIT (CLUSTER) VARIABLE PER SCHEDULE SC PER SCHEDULE; Duration: TO BE DETERMINED *Please review for potential replacement for e-prescription and drug interaction check* Active Montelukast Sodium 10 MG 1 tab(s) orally once a day; Duration: 30 day(s) Active Famotidine 40 MG 1 tab(s) orally 30 mins prior to SCIT; Duration: 30 days Active EpiPen 2-Jm 0.3 MG/0.3ML as directed intramuscularly once; Duration: 90 days 04/18/2022 Active TRAZADONE 50MG 1 BY MOUTH AT BEDTIME takes 3 @ HS *Please review for potential replacement for e-prescription and drug interaction check* Active Fluticasone Propionate 50 MCG/ACT 2 spray(s) in each nostril BID; Duration: 30 day(s) Active Cetirizine HCl 10 MG 1 tab(s) orally once a day; Duration: 30 days Active Belsomra 10 MG 1 tab(s) orally once a day (at bedtime) Active Fluocinonide 0.05 % 1 haja applied topically 3 times a day uses prn itch Active clonazePAM 0.5 MG 1 tab(s) orally 3 times a day takes one pill daily Active DULoxetine HCl 60 MG 1 cap(s) orally once a day Active Propranolol HCl 60 MG 1 tab(s) orally 2 times a day takes once a day Active Triamcinolone Acetonide 0.1 % 1 haja applied topically 3 times a day; Duration: 30 day(s) Active buPROPion HCl 75 MG 1 tab(s) orally 3 times a day Not-Taking Encounters Encounter Location Date Provider Diagnosis [address] [address] 08/05/2023 Provider ZZ-Migration Plan Of Treatment No Information Progress Notes * Francoise BANERJEEB:1975 ( 49 yo F)Acc No.[id number]:08/05/2023 Patient: Aida CANALES Provider: Saúl Romo :1975 A ge:48 Y S ex:Female Date:08/05/2023 Address:[address] [place], [place] [id number] Pcp:Priscilla Salter Subjective: * Chief Complaints: * 1 . [facility] Conversion Encounter. * Medical History: * Medications: T aking Triamcinolone Acetonide 0.1 % Ointment 1 haja applied topically 3 times a day , Taking Belsomra 10 MG Tablet 1 tab(s) orally once a day (at bedtime) , Taking clonazePAM 0.5 MG Tablet 1 tab(s) orally 3 times a day , Notes to Pharmacist: takes one pill daily, Taking Fluocinonide 0.05 % Cream 1 haja applied topically 3 times a day , Notes to Pharmacist: uses prn itch, Taking Propranolol HCl 60 MG Tablet 1 tab(s) orally 2 times a day , Notes to Pharmacist: takes once a day, Taking DULoxetine HCl 60 MG Capsule Delayed Release Particles 1 cap(s) orally once a day , Taking TRAZADONE 50MG 1 BY MOUTH AT BEDTIME , Notes to Pharmacist: takes 3 @ HS *Please review for potential replacement for e-prescription and drug interaction check*, Taking EpiPen 2-Jm 0.3 MG/0.3ML Solution Auto-injector as directed intramuscularly once , Taking Cetirizine HCl 10 MG Tablet 1 tab(s) orally once a day , Taking Fluticasone Propionate 50 MCG/ACT Suspension 2 spray(s) in each nostril BID , Taking Famotidine 40 MG Tablet 1 tab(s) orally 30 mins prior to SCIT , Taking Auvi-Q 0.3 MG/0.3ML Solution Auto-injector as directed intramuscularly once , Taking NASAL WASHES N/A 1 QUART OF STERILIZED TAP WATER OR DISTILLED WATER, 1 TSP NACL, 1 PINCH OF BAKING SODA DIRECTED INTRANASALLY NEEDED , Notes to Pharmacist: *Please review for potential replacement for e-prescription and drug interaction check*, Taking SIT (CLUSTER) VARIABLE SEE RECORD PER SCHEDULE SC PER SCHEDULE , Notes to Pharmacist: *Please review for potential replacement for e-prescription and drug interaction check*, Taking Triamcinolone Acetonide 0.1 % Ointment 1 haaj applied topically 3 times a day , Taking Montelukast Sodium 10 MG Tablet 1 tab(s) orally once a day , Not-Taking/PRN buPROPion HCl 75 MG Tablet 1 tab(s) orally 3 times a day * Allergies: s ulfADIAZINE: hives, Indomethacin: other reaction. Objective: * Vitals: Assessment: Plan: * Treatment: * Billing Information: * Visit Code: * Procedure Codes: * Electronic signature of Marlon TEJEDA-Migration on 01/01/2025 at 02:23 PM AUTOMATION AND CONTROLS SUPERVISOR Sign off status: Pending * Provider: Saúl cortes Migration Date: 0 08/05/2023 Generated for Shilpa cifuentes/Hector/Tamra on: 03/03/2024 02:23 PM AUTOMATION AND CONTROLS SUPERVISOR
[2025-01-01] VITALS (17 sets, daily range): BP systolic 98–133; BP diastolic 64–88; PULSE 59–87; RESP 13–20; TEMP 36.2; O2SAT 95–100
--- NOTE | ~2025-01-01 | CT_ITS ---
EXAMINATION: CT brain wo con COMPARISON: None HISTORY: head injury TECHNIQUE: Axial images were obtained through the brain without IV contrast. CT scan performed using dose optimization techniques including the following automated exposure control; adjustment of mA and/or kV; use of iterative reconstruction technique. Automatic exposure control was used to reduce radiation dose. Permanent radiation dose record is archived to PACS. FINDINGS: No acute infarct or parenchymal hemorrhage. No abnormal mass or mass effect. No midline shift. No extra-axial fluid collections. No hydrocephalus. . Mastoid air cells unremarkable. Sinuses and orbits unremarkable. No acute fracture. No significant facial or scalp soft tissue swelling evident. No radiopaque foreign body is seen. Impression: 1.No acute intracranial abnormality. Reviewed, dictated and finalized at location P. CHANGE CREW MEMBER Impression: 1.No acute intracranial abnormality.
--- NOTE | ~2025-01-01 | MR_ITS ---
EXAM/PROCEDURE: MR lumbar spine wo/w con HISTORY: Bilateral lower extremity weakness COMPARISON: None available. TECHNIQUE: Standard technique for pre and postcontrast enhanced lumbar spine MRI performed. FINDINGS: Mild degenerative changes involving disc spaces and posterior elements throughout the lumbar spine. No acute or aggressive bony or soft tissue process seen. On postcontrast series, no abnormal enhancing lesions or masses seen. The conus tapers normally at the level of L1. The cervix findings as follows: T12-L1: Mild degenerative change L1-2: Mild degenerative change L2-3: Mild to moderate degenerative facet and disc changes but no spinal canal stenosis or discrete disc protrusion. Mild bilateral neural foraminal narrowing. L3-4: Mild degenerative disc and facet changes with no spinal canal stenosis or discrete disc protrusion. Mild bilateral neural foraminal narrowing. L4-5: Mild to moderately severe degenerative disc bulging with no spinal canal stenosis or discrete disc protrusion. Mild to moderate bilateral neural foraminal narrowing. L5-S1: No spinal canal stenosis or discrete disc protrusion. Mild bilateral neural foraminal narrowing. IMPRESSION: No acute findings. Mild multilevel degenerative changes with no spinal canal stenosis or discrete disc protrusion. Reviewed, dictated and finalized at location A. RINARY RADIOLOGIST IMPRESSION: No acute findings. Mild multilevel degenerative changes with no spinal canal st enosis or discrete disc protrusion.
--- NOTE | ~2025-01-01 | CT_ITS ---
CTA chest PE protocol HISTORY:syncope . COMPARISON: None. TECHNIQUE: Following the noncontrasted treating engineer, axial images of the thorax were obtained following infusion of 100 cc of Isovue 370. Post-processing on an independent workstation was performed to reconstruct MIP images for evaluation of the thoracic vasculature. FINDINGS: There is no pulmonary embolism, aortic dissection, thoracic aneurysm or pericardial fluid. The lung parenchyma is clear. No pleural effusion or pneumothorax is noted. There is no axillary, mediastinal or hilar adenopathy. Limited evaluation of the upper abdomen demonstrates no gross abnormalities. Review of bone windows demonstrates no osteoblastic or lytic lesions. IMPRESSION: There is no pulmonary embolism, aortic dissection, pericardial fluid or thoracic aneurysm. No acute lung findings. All CT scans at this facility are performed using low dose modulation techniques as appropriate to perform exam including the following: automated exposure control; use of iterative reconstruction technique; adjustment of the mA and/or kV according to patient size (this includes techniques or standardized protocols for targeted exams where dose is matched to indication/reason for exam). Reviewed, dictated and finalized at location S. NG ROOM ATTENDANT IMPRESSION: There is no pulmonary embolism, aortic dissection, pericardial fluid or thoraci c aneurysm. No acute lung findings. All CT scans at this facility are performed using low dose modulation techniqu es as appropriate to perform exam including the following: automated exposure c ontrol; use of iterative reconstruction technique; adjustment of the mA and/or kV according to patient size (this includes techniques or standardized protocol s for targeted exams where dose is matched to indication/reason for exam).
--- NOTE | ~2025-01-01 | XR_ITS ---
XR hip LT 2V w AP pelvis INDICATION: pain COMPARISON: None FINDINGS: AP view the pelvis and 2 views of the left hip demonstrate no acute fracture or dislocation. IMPRESSION: No acute fracture or dislocation. Reviewed, dictated and finalized at location S. ER MACHINE OPERATOR
--- NOTE | ~2025-01-01 | MR_ITS ---
EXAMINATION: MR thoracic spine wo/w con DATE: 01/02/2025 14:39 INDICATION: Bilateral lower extremity weakness TECHNIQUE: Magnetic resonance imaging (MRI) of the thoracic spine was performed with intravenous contrast. Sagittal localizer T1-weighted FSE of the cervical spine was obtained. Thoracic spine sequences included sagittal T2-weighted FSE, sagittal T1-weighted FSE, sagittal T2-weighted FS FSE, and axial T2-weighted FSE. COMPARISON: None FINDINGS: Mild multilevel degenerative changes throughout the thoracic spine. The spinal cord appears normal in signal and morphology throughout. No discrete medullary cord lesions or gross myelopathic changes. No abnormal enhancing changes on postcontrast series. No discrete disc protrusion or spinal canal stenosis. No acute or aggressive bony or soft tissue process seen. IMPRESSION: 1. No thoracic spinal cord pathology, spinal canal stenosis, or discrete disc protrusion. 2. Mild multilevel degenerative changes throughout the thoracic spine. Reviewed, dictated and finalized at location A. ILE PRODUCTS PROCESSOR IMPRESSION: 1. No thoracic spinal cord pathology, spinal canal stenosis, or discrete disc p rotrusion. 2. Mild multilevel degenerative changes throughout the thoracic spine.
--- NOTE | ~2025-01-01 | XR_ITS ---
PROCEDURE(S): X-ray shoulder left, minimum 2 views INDICATION(S): Injury and pain COMPARISON(S): None. TECHNIQUE: 3 radiographic images were submitted for interpretation. FINDINGS: Bones: There are no fractures seen. There are no destructive lesions or other lesions identified. Joints: There are no dislocations identified. There is no evidence of erosive arthropathy. IMPRESSION: No acute abnormalities are seen. Reviewed, dictated and finalized at location A. ENTICE LINEMAN THIRD STEP
--- NOTE | ~2025-01-01 | XR_ITS ---
PROCEDURE(S): X-ray left foot, minimum 3 views INDICATION(S): Injury and pain COMPARISON(S): None. TECHNIQUE: 3 radiographic images were submitted for interpretation. FINDINGS: Bones: There are no fractures seen. There are no destructive lesions or other lesions identified. Joints: There are no dislocations identified. There is no evidence of erosive arthropathy. There is mild plantar calcaneal spurring. IMPRESSION: No acute abnormalities are seen. Reviewed, dictated and finalized at location A. CLING WORKER
--- NOTE | ~2025-01-01 | XR_ITS ---
XR ribs LT 2V w CXR 2V INDICATION: Left rib pain, fall COMPARISON: NONE PA CHEST: No acute pulmonary process is evident. Cardiac size and pulmonary vascularity are unremarkable There is no pleural effusion or pneumothorax. No consolidation is identified. LEFT RIBS: Three views of the left ribs demonstrate no acute rib fracture. IMPRESSION: 1. No acute pulmonary process. 2. No rib fracture is identified. Reviewed, dictated and finalized at location S. UER DIPPING MACHINE OPERATOR
--- NOTE | ~2025-01-01 | CT_ITS ---
EXAM/PROCEDURE: CT facial & cervical spine wo HISTORY: fall COMPARISON: None available. TECHNIQUE: Cervical spine and facial bone CT performed. FINDINGS: Cervical spine CT: In the cervical spine, minimal grade 1 anterolisthesis C3 and C4 noted with loss of normal lordosis. Spondylolisthesis appears degenerative. Multilevel degenerative changes with no large disc herniation or severe spinal canal stenosis. No fracture lucency C1-C7. No gross prevertebral or paraspinal soft tissue swelling or hematoma seen. FACIAL BONE CT: No large hematoma or severe soft tissue zone. No fracture lucency. Mastoid air cells, middle ear cavities and paranasal sinuses are fully aerated. Orbital structures appear symmetric and patent. Orbital structures are obscured by large amount of dental amalgam with beam hardening and streak artifact. IMPRESSION: 1. No fracture lucency C1-C7. Multilevel degenerative changes with spondylolisthesis C3 on C4 which appears degenerative. 2. No facial bone fracture. Reviewed, dictated and finalized at location A. ER PRODUCTION MACHINE OPERATOR IMPRESSION: 1. No fracture lucency C1-C7. Multilevel degenerative changes with spondylolist hesis C3 on C4 which appears degenerative. 2. No facial bone fracture.
--- OUTSIDE RECORDS SUMMARY | 2025-01-01 14:23 | XMS_ITS | Encounter Summary ---
Author Organization [facility] Address [address] [place] [address] Care Team Providers Care [employer]ometric[employer] Professor Name Role Phone Jaclyn Salter PA-C Primary Care Provider [phone] Encounter Details Date Type Department Care Team (Late st Contact Info) Description 07/08/2019 Prep for Procedure [facility] Pre-Admission Testing [facility] [address] [place], [place] [id number] Laura Hernadez, [address] [place] [address] Social History Tobacco Use Types [...] PREG SCREEN-SERUM NEGATIVE 07/12/2019 11:31 AM CDT [facility] 07/12/2019 10:5 9 AM CDT Beverley Tracy COIN MACHINE OPERATOR LABORATORY Final R esult [facility] [address] [place] [address], * PRE-SURGICAL/PRE-PROCEDURE CORONAVIRUS (COVID 19) (07/09/2019 3:00 PM CDT) CORONAVIRUS SARS COV 2 PCR (RESP) NOT DETECTED NOT DETECTED 07/10/2019 5:[address] [facility] Comment: A Not Detected (negative) test [...] providers and patients using the following websites: https://www.Studentgems.com/home/Covid-19/HCP/QuestIVD/fact- sheet.html https://www.[employer]gems.Atlas Learning/home/Covid-19/Patients/ Quest[employer]D/fact-sheet.html This test has been authorized by the FDA under an Emergency Use Authorization (EUA) for use by authorized laboratories. Due to the current public health emergency, [facility] is receiving a high volume of samples [...] about COVID-19 can be found at the [facility] website: www.[employer].Atlas Learning/Covid19. Test performed at [facility] [address] [place] [address] Director: CARMEN COUCH DO,MPH NASOPHARYNGEAL SWAB / Unknown 07/09/2019 3:00 PM CDT us Laura Hernadez DO MICROBIOLOGY - GENERAL OR[facility] Final Result [facility] [id number] [place] [address] documented in this encounter Visit Diagnoses Diagnosis Preop examination- Primary Preoperative examination, unspecified documented in this encounter Additional Health Concerns Infection Onset Date Last Indicated Resolved Time COVID-19 Rule Out 07/09/2019 07/09/2019 07/10/2019 5:14 PM CDT documented as of this encounter Care Teams [employer] Professor Relationship Specialty Start Date End Date Jaclyn Salter PA-C PCP - General NURSE PRACTITIONER 07/08/19 documented as of this encounter
--- OUTSIDE RECORDS SUMMARY | 2025-01-01 14:24 | XMS_ITS | Clinical Summary ---
Author Organization [facility] [address] [facility] Address [address] [place] [address] Care Team Providers Care Manager Paid Name Role Phone Jaclyn Salter Primary Care Provider [phone] Benson Newman MD Unavailable [phone] Allergies Active Allergy Reactions Criticality Noted Date [...] joint. Assessment & Plan (01/11/2021 10:09 AM LENS GENERATOR): 45yoF referred for evaluation due to rash, joint pain/stiffness, muscle weakness, and labs showing +KISHA with OCC MED PHYSICIAN 1.1. She denies any inflammatory sounding joint [...] 1:320 with otherwise unremarkable serologies including the OCC MED PHYSICIAN, xrays with L SI joint OA, and [...] muscle weakness, and labs showing +KISHA with OCC MED PHYSICIAN 1.1. She denies any inflammatory sounding joint [...] and her strength is appropriate throughout. The +OCC MED PHYSICIAN can be seen in the setting of [...] Comments Blood Pressure 142/100 01/11/2021 8:38 AM LENS GENERATOR Pulse 92 01/11/2021 8:38 AM LENS GENERATOR Temperature 36 C (96.8 F) 01/11/2021 8:38 AM LENS GENERATOR Respiratory Rate - - Oxygen Saturation 99% 01/11/2021 8:38 AM LENS GENERATOR Inhaled Oxygen Concentration - - Weight 84.8 kg (187 lb) 01/11/2021 8:38 AM LENS GENERATOR Height - - Body Mass Index - - Plan of Treatment Not on file Insurance [employer] Care Teams Manager Paid Relationship Specialty Start Date End Date Jaclyn Salter PA [address] [place] [id number] PCP - General Family Practice 11/26/20 Benson Newman MD [address] [place] [address] Consulting Physician Rheumatology 11/26/20
--- OUTSIDE RECORDS SUMMARY | 2025-01-01 14:24 | XMS_ITS | Patient Health Record ---
Author Organization [facility] ([address]) Address [address] [place] [address] Care Team Providers Care Pleat Taper Name Role Phone Tai Salterah Primary Care Provider Unavailab Cheo Harris Unavailable [phone] Allergies Allergen (clinical drug ingredient) Drug/Non Drug [...] Status Risk Notes Problem Chronic allergic conjunctivitis (28491478) Other chronic allergic conjunctivitis (H10.45) Active confirmed Problem Allergic rhinitis caused by pollen (disorder) (24076590) Allergic rhinitis due to pollen (J30.1) Active confirmed Problem Allergic rhinitis caused by animal hair and dander (485207345876814) Allergic rhinitis due to animal (cat) (dog) hair and dander (J30.81) Active confirmed Problem Allergic rhinitis (72532870) Other allergic rhinitis (J30.89) Active confirmed Problem 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) Active confirmed Problem Dermatitis (457590631) Dermatitis, unspecified (L30.9) Active confirmed Problem Allergic rhinitis caused by pollen (disorder) (70473930) Allergic rhinitis due to pollen (J30.1) Active confirmed Problem Allergic rhinitis caused by animal hair and dander (617934420343368) Allergic rhinitis due to animal (cat) (dog) hair and dander (J30.81) Active confirmed Problem Allergic rhinitis (93785068) Other allergic rhinitis (J30.89) Active confirmed Problem Chronic allergic conjunctivitis (43598810) Other chronic allergic conjunctivitis (H10.45) Active confirmed Problem Allergic contact dermatitis caused by chemical (8123458569142456 3) Allergic contact dermatitis due to other chemical products (L23.5) Active confirmed Problem Eruption of skin (699992236) Rash and other nonspecific skin eruption (R21) Active confirmed Problem Allergic contact dermatitis caused by metal and/or metal compound (disorder) (4766873898) Allergic contact dermatitis due to metals (L23.0) Active confirmed Problem Elevated blood pressure reading without diagnosis of hypertension (066157101) Elevated blood-pressure reading, without diagnosis of hypertension (R03.0) Active confirmed Plan Of Treatment No Information Insurance Providers Payer Name Payer Address Payer Phone Subscriber Number Group Number Insured Name Patient Relationship to Insured Coverage Start Date Coverage End Date [facility] [address] [address] [place] [address] [id number] Jorge Banerjee Spouse - patient is the [...]
--- OUTSIDE RECORDS SUMMARY | 2025-01-01 14:24 | XMS_ITS | Clinical Summary ---
Author Organization [facility] Address [address] [place] [address] Care Team Providers Care Third Helper Name Role Phone Jaclyn Salter PA-C Primary Care Provider [phone] Allergies Active Allergy Reactions Criticality Noted Date [...] - 2024-2 6 season) 2024 11/08/2020, 10/18/2020 Influenza Adult (#1) 2024 DTaP, Tdap and Td Vaccines ( 2 - Td or Tdap) 05/03/2033 05/04/2023 Hepatitis A Vaccines Aged Out No long er eligible based on patient's age to complete this topic Meningococcal B Vaccine Aged Out No l [...] VIEW RT DIGI Routine 04/10/2019 10:00 AM RFID SYSTEMS ARCHITECT Abnormal mammogram THINPREP IMAGING SYSTEM PAP Routine 11/13/2012 10:47 AM CDT from Last 3 Months or Most Recently Relevant to Health Maintenance Results * MG DIAG ADD VIEW RT DIGI (04/10/2019 10:00 AM RFID SYSTEMS ARCHITECT) Anatomical Region Laterality Modality Breast Right Mammography, Rad iographic Imaging 04/10/2019 10:3 3 AM RFID SYSTEMS ARCHITECT Narrative 04/10/2019 10:35 AM RFID SYSTEMS ARCHITECT RIGHT BREAST DIAGNOSTIC MAMMOGRAPHY WITH COMPUTER AIDED [...] Comment: Patient Name: CHLOE SUÁREZ Specimen #: [id number] Procedure Date: 11/13/2012 /Age: 02 1975 (Age: 37) Gender: F Accessioned: 11/14/2012 Address: [address] [place] [address] Reported: 11/19/2012 Encounter: [id number] Location: [facility] Physician(s): ALVIN GILES MD : CYTOPATHOLOGY - GYNECOLOGIC REPORT Diagnosis: TEST NAME: THINPREP PAP WITH SINTERING PRESS OPERATOR,REFLEX HPV-ASCUS ONLY INTERPRETATION/RESULT: EPITHELIAL CELL ABNORMALITY: ATYPICAL [...] Electronically Signed sab11/22/2012 Specimen: THINPREP PAP WITH SINTERING PRESS OPERATOR,REFLEX HPV-ASCUS ONLY Clinical Diagnosis and History Date [...] 3:15 PM 07/12/2019 11:11 PM Care Teams Third Helper Relationship Specialty Start Date End Date Jaclyn Salter PA-C PCP - General NURSE PRACTITIONER 07/08/19
--- OUTSIDE RECORDS SUMMARY | 2025-01-01 14:24 | XMS_ITS | Clinical Summary ---
Author Organization [facility] Address [address] [facility] [place] [address] Care Team Providers Care Subeditor Name Role Phone Jaclyn Salter Primary Care Provider [phone] Source Comments [facility],non-owned Affiliates and Associated Physician Practices is amultiple site organization consisting of ambulatory clinics and hospital sitesin [place], [place], [place] and [place]. This disclosure is being madepursuant to the Care Everywhere program and may not contain all information available regarding this patient. Last updated 17.[facility] [employer] Social History Tobacco Use Types Packs/Day Years Used Date Smoking Tobacco: Never Assessed Comments Unknown Sex and Gender Information Value Date Recorded Sex Assigned at Not on file Legal Sex Female 4:29 PM HOT KNIFE CUTTER Gender Identity Not on file Sexual Orientation [...] age to complete this topic Care Teams Subeditor Relationship Specialty Start Date End Date Jaclyn Salter PA [address] [place] [id number] PCP - General 10/14/21
--- OUTSIDE RECORDS SUMMARY | 2025-01-01 14:24 | XMS_ITS | Encounter Summary ---
Author Organization [facility] Address [address] [facility] [place] [address] Care Team Providers Care Barley Steeper Name Role Phone Jaclyn Salter Primary Care Provider Encounter Details Date Type Department Care Team (Late st Contact Info) Description 01/22/2021 Lab Requisition [facility] [address] [place] [address] Garrick Levy MD [address] [facility] [place] [address] Social History Tobacco Use Types Packs/Day Years Used Date Smoking Tobacco: Never Assessed Comments Unknown Sex and Gender Information Value Date Recorded Sex Assigned at Not on file Legal Sex Female 4:29 PM RADIOTELEGRAPH OPERATOR Gender Identity Not on file Sexual Orientation Not on file documented as of this encounter Plan of Treatment Not on file documented as of this encounter Procedures Procedure Name Priority Date/Time Associated Diagnosis Comments DERMATOPATHOLOGY Routine 01/20/2021 12:0 0 AM RADIOTELEGRAPH OPERATOR documented in this encounter Results * DERMATOPATHOLOGY (01/20/2021 12:00 AM RADIOTELEGRAPH OPERATOR) Case Report Dermatopathology Report Case: [id number] Authorizing Provider: Garrick Levy MD Collected: 01/20/2021 12:00 AM Ordering Location: [facility] Received: 01/22/2021 08:12 AM Pathologist: Christy Galloway MD Specimen: Skin, right chest 11:16 AM RADIOTELEGRAPH OPERATOR DERMATOPATHOLOGY LABORATORY Final Diagnosis Specimen A. SKIN, right chest: PERIVASCULAR AND INTERSTITIAL MIXED INFLAMMATORY INFILTRATE (L50.9) CHRONIC PERIFOLLICULITIS WITH PITYROSPORUM (L73.8) (see microscopic description and comment) 11:16 AM [facility] DERMAT[facility]ORATORY at [address] RADIOTELEGRAPH OPERATOR Clinical History Prurigo vs other. Path# [id number] 11:16 AM [facility] DERMATOP[facility]OR[facility] Gross Description Specimen A: Received is one formalin filled container labeled with the patient's name and designated right chest. The specimen consists of a shave biopsy measuring [id number]. Jar 0. 11:16 AM [facility] DERMATOPATHOLOGY LABORATORY Microscopic Description Specimen [...] erythemas. Clinical correlation is recommended. 11:16 AM [facility] DERMATOPATH[facility]OR[facility]ORY Disclaimer An external and internal positive and negative controls are appropriate for the histochemical, immunohistochemical and immunofluorescence stain(s) in this case (if any), except where stated explicitly. The performance characteristics of the stain(s) cited in this report were developed and its performance characteristic determined by the Dermatopathology Laboratory at [facility], directed by Dr. Lewis Travis. These tests need not be, and therefore are not, approved by the [place] Food and Drug Administration. The tests are used for clinical purposes. Billing Codes Specimen Charges Stain Charges 14894 1 29450 1 11:16 AM [facility] DERMATOPATHOLOGY [facility]ORATORY Embedded Images 11:16 AM [facility] DERMATOPATH[facility]Y [facility]OR[facility]ORY Pathology/Cytolog y TISSUE SPECIMEN FROM SKIN / Unknown 01/20/2021 01/22/2021 8:12 AM [facility] us Garrick Levy MD LAB - PATHOLOGY/CYTOLOGY ORDER HAL Final Result DERMATOPATHOLOGY LABORATORY [facility] - Department of Dermatology [facility] [address] [facility], [address] [phone] documented in this encounter Visit Diagnoses Not on filedocumented in this encounter Care Teams Barley Steeper Relationship Specialty Start Date End Date Jaclyn Salter PA [address] [place] [address] PCP - General 10/14/21 documented as of this encounter
--- NOTE | 2025-01-01 15:39 | ED.WEAKNESS ---
HPI - Weakness General Chief complaint: Weakness <April Chang PA-C - Last Filed: 01/11/25 15:15> Stated complaint: NEURO <April Chang PA-C - Last Filed: 01/11/25 15:15> Time Seen by Provider: 01/01/25 15:39 <April Chang PA-C - Last Filed: 01/11/25 15:15> Focused HPI: This is a 49 year old female that presents to the ER after a fall on Monday. Reports her legs went out from under her. Reports she hit her chest. Reports pain in her sternum. Reports she fell again and hit her head. Reports left hip pain, left shoulder pain, left foot pain. Reports she has had weakness in her legs and feet since. GENERAL: Well-appearing, well-nourished, and in no acute distress. HEAD: Normocephalic. Contusion to the left upper eyelid CHEST: Clear to auscultation. ?No respiratory distress. HEART: Regular rate and rhythm.? NEURO: ?Alert and oriented x3. Patient screened in triage and initial orders placed.? ?Additional care and disposition to be based upon?diagnostic testing and treatment. <April Chang PA-C - Last Filed: 01/11/25 15:15> History of Present Illness HPI Narrative: I agree with the above HPI 49-year-old female presented to the emergency department for evaluation after having a near syncopal episode on Monday. Patient reports she was walking to the bathroom and her legs gave out causing her to fall. Patient was assisted to the bathroom and after using the restroom she was being assisted back to bed when she had a 2nd fall. Patient denies any associated lightheaded dizziness but states that her legs just gave out. Patient has had extensive neurologic workup and rheumatological workup for issues with polyneuropathy. Patient does follow-up with Dr. Duncan and has been diagnosed with nonepileptic seizure and conversion disorder. <Johnson Mcnamara MD - Last Filed: 01/12/25 07:51> Related Data Home medications: Home Medications ?Medication ?Instructions ?Recorded ?Confirmed ?Last Taken ?Type duloxetine 60 mg capsule,delayed 90 mg PO HS 01/02/25 01/07/25 Unknown History release gabapentin 100 mg capsule 100 mg PO BID 01/02/25 01/07/25 Unknown History hydroxyzine HCl 10 mg tablet 10 mg PO BID PRN itching 01/02/25 01/07/25 Unknown History magnesium glycinate 120 mg (as 120 mg PO HS 01/02/25 01/07/25 Unknown History glycinate) capsule melatonin 5 mg-MARY 30 mg-valerian 1 cap PO HS 01/02/25 01/07/25 Unknown History 50 mg capsule (Repozen Sleep Aid) propranolol 60 mg capsule,24 60 mg PO HS 01/02/25 01/07/25 Unknown History hr,extended release trazodone 150 mg tablet 200 mg PO QHS insomnia 01/02/25 01/07/25 Unknown History <April Chang PA-C - Last Filed: 01/11/25 15:15> Allergies/Adverse reactions: Allergies Allergy/AdvReac Type Severity Reaction Status Date / Time lactose Allergy Intermediate Diarrhea Verified 01/07/25 15:17 red dye Allergy Intermediate stomach Verified 01/07/25 15:17 ache Sulfa (Sulfonamide Allergy Mild Unknown Verified 01/07/25 15:17 Antibiotics) latex Allergy Blister Verified 01/07/25 15:17 gluten AdvReac Severe Diarrhea Verified 01/07/25 15:17 eszopiclone (From Lunesta) AdvReac Intermediate Diarrhea Verified 01/07/25 15:17 zolpidem (From Ambien) AdvReac Intermediate Hallucinati Verified 01/07/25 15:17 ng <April Chang PA-C - Last Filed: 01/11/25 15:15> Review of Systems Review of Systems: All systems reviewed & are unremarkable except as noted in HPI and below <Johnson Mcnamara MD - Last Filed: 01/12/25 07:51> [facility] Past Medical History Medical History: Medical History (Updated 01/11/25 @ 15:15 by April Chang PA-C) Neck pain Frequent falls Peripheral neuropathy Psychogenic nonepileptic seizure Seizures Plantar fasciitis of left foot 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 Early satiety Generalized abdominal pain delivery delivered <April Chang PA-C - Last Filed: 01/11/25 15:15> Surgical History Surgical History: Surgical History H/O laparoscopy H/O: hysterectomy <April Chang PA-C - Last Filed: 01/11/25 15:15> Family History Family History: Family History Father Alcohol abuse Heart disease Cancer Multiple sclerosis Tinnitus Mother Depression Asthma Spinal cord disease Sleep apnea Osteoporosis Restless leg syndrome Grandparent Restless leg syndrome Lung cancer Lupus Grandparent Lung cancer <Apirl Chang PA-C - Last Filed: 01/11/25 15:15> Social History Social History: Social History Smoking status: Current every day smoker Tobacco type: e-cigarettes/vaping Second hand tobacco smoke exposure: Yes Alcohol intake: current Drinks per week: 14 Alcohol use details: occasional Substance use: current Substance use type: marijuana Lack of Transportation: No Lack of Food: Never True Current Housing: I Have Housing Concerned About Future Housing: No Difficulty Paying Gas/Electric Bills: No Difficulty Paying for Meds: No Currently Unemployed: No Education: Bachelor's Degree Difficulty w/ Childcare or Family Care: No Living arrangements: with family Occupation/Education: occupation Gender identity (if verbalized by the patient): Female Sexual Orientation (if Verbalized by the Patient): Straight or Heterosexual Spiritual care concerns: No <April Chang PA-C - Last Filed: 01/11/25 15:15> Exam Narrative: APPEARANCE: anxious affect HEAD: normocephalic, atraumatic. EYES: PERRLA/EOMI, conjunctivae clear. NOSE: Normal no drainage EARS:TMS clear with good light reflex. THROAT: Pharynx clear, no exudate. NECK: Supple. No adenopathy, no masses. RESPIRATORY: Airway patent, respirations nonlabored. Clear to auscultation bilaterally, no rales, rhonchi, wheezing. CARDIOVASCULAR: Regular rate and rhythm without murmurs rubs or gallops. ABDOMINAL: Soft, nontender, nondistended, normal bowel sounds MUSCULOSKELETAL: Moves all extremities. Strength/ROM intact, No edema, No calf tenderness. NEURO: Alert. Cranial nerves II through XII intact. Grossly intact SKIN: Warm, dry. Normal Color <Johnson Mcnamara MD - Last Filed: 01/12/25 07:51> Course Vital Signs Vital signs: Vital Signs Temperature 97.2 F L 01/01/25 13:23 Pulse Rate 72 01/01/25 13:23 Respiratory Rate 16 01/01/25 13:23 Blood Pressure 133/84 01/01/25 13:23 Pulse Oximetry 100 01/01/25 13:23 Temperature 98.2 F 01/03/25 08:00 Pulse Rate 63 01/03/25 08:00 Respiratory Rate 16 01/03/25 08:00 Blood Pressure 110/80 01/03/25 08:00 Pulse Oximetry 97 01/03/25 11:58 Oxygen Delivery Room Air 01/03/25 11:58 <April Chang PA-C - Last Filed: 01/11/25 15:15> Vital Signs Temperature 97.2 F L 01/01/25 13:23 Pulse Rate 72 01/01/25 13:23 Respiratory Rate 16 01/01/25 13:23 Blood Pressure 133/84 01/01/25 13:23 Pulse Oximetry 100 01/01/25 13:23 Temperature 98.2 F 01/03/25 08:00 Pulse Rate 63 01/03/25 08:00 Respiratory Rate 16 01/03/25 08:00 Blood Pressure 110/80 01/03/25 08:00 Pulse Oximetry 97 01/03/25 11:58 Oxygen Delivery Room Air 01/03/25 11:58 <Johnson Mcnamara MD - Last Filed: 01/12/25 07:51> MDM - Weakness MDM Narrative Medical decision making narrative: 49-year-old female presents emergency department for evaluation for episodes of near-syncope. Patient had no prodromes with this. Patient denied sensation have any lightheaded or dizziness prior to the 1st episode of near syncope. Patient reports her legs gave out and caused her to fall. Patient did have some dizziness after striking her head. Patient does have prior history of both Rheumatological and neurologic workups. patient feels that the symptoms that she experienced were not related to her previous episodes of neuropathy or weakness. Patient was afebrile with no leukocytosis and hemoglobin of 12.4. No acute abnormalities on her CMP UA was negative for infection. Patient had negative x-ray, hip x-ray, shoulder x-ray, head CT, rib x-ray, CT head, CT facial bone CT cervical spine. CTA was ordered to further evaluate the etiology of the syncopal episodes. Patient continues to have increased generalized weakness. at time of sign-out patient may benefit from admission for further near syncope/syncope workup. <Johnson Mcnamara MD - Last Filed: 01/12/25 07:51> Differential Diagnosis Differential diagnosis: Likely acute myocardial infarction, hypoglycemia, hypothyroidism, rhabdomyolysis and dehydration <Johnson Mcnamara MD - Last Filed: 01/12/25 07:51> Lab Data Result diagrams: 01/03/25 05:08 01/03/25 05:08 <April Chang PA-C - Last Filed: 01/11/25 15:15> Labs: Lab Results 01/01/25 Range/Units 17:00 WBC 4.9 (4.5-10.0) K/mm3 RBC 3.42 L (4.2-5.4) M/mm3 Hgb 12.4 (12.0-15.0) g/dL Hct 37.9 (37.0-47.0) % MCV 110.8 H (80-100) fl MCH 36.3 H (26-34) pg MCHC 32.7 (32-36) g/dl RDW 12.4 (11.5-14.5) % Plt Count 184 (150-375) k/mm3 MPV 10.2 (7.4-10.4) fl Immature Gran % (Auto) 0.0 (0-0.5) % Neut % (Auto) 54.6 (45.5-73.1) % Lymph % (Auto) 33.7 (18.3-44.2) % [place] % (Auto) 7.2 (2.6-8.5) % Eos % (Auto) 3.5 (0-4.4) % Baso % (Auto) 1.0 (0.2-1.2) % Lymph # (Auto) 1.64 (0.9-3.2) K/mm3 [place] # (Auto) 0.4 (0.1-0.6) K/mm3 Eos # (Auto) 0.2 (0-0.3) K/mm3 Baso # (Auto) 0.1 (0.0-0.1) K/mm3 Abs Immat Gran (auto) 0.00 (0.00-0.031) K/mm3 Absolute Neuts (auto) 2.7 (1.3-6.7) K/mm3 Absolute Nucleated RBC 0.000 (0.0-0.012) K/mm3 Band Neutrophils % 0 (0-6) % Nucleated RBC % 0.0 (0.0-0.2) % Platelet Estimate Adequate (Adequate) Macrocytosis 1+ (NORMAL) Schistocytes None seen Sodium 134 L (137-145) mmol/L Potassium 3.6 (3.4-5.0) mmol/L Chloride 96 L (98-107) mmol/L Carbon Dioxide 30 (22-30) mmol/L Anion Gap 8 (4-12) mmol/L BUN 12 (7-17) mg/dL Creatinine 0.98 (0.7-1.0) mg/dL Estim Creat Clear Calc 55 ml/min Estimated GFR 60 (59 - ) Glucose 104 (65-110) mg/dL Calcium 9.7 (8.4-10.2) mg/dL Total Bilirubin 0.7 (0.2-1.3) mg/dL AST 40 H (14-36) U/L ALT 32 (6-35) U/L Alkaline Phosphatase 62 (38-126) U/L Total Protein 7.6 (6.3-8.2) g/dL Albumin 4.6 (3.5-5.1) g/dL Urine Color Yellow (Yellow) Urine Appearance Clear (Clear) Urine pH 7.5 (5.0-9.0) Ur Specific Bailey 1.006 (1.001-1.035) Urine Protein Negative (Negative) mg/dL Urine Glucose (UA) Negative (Negative) mg/dL Urine Ketones Negative (Negative) mg/dL Ur Blood (Man) Negative (Negative) Urine Nitrate Negative (Negative) Urine Bilirubin Negative (Negative) Urine Urobilinogen 0.2 (<2.0) mg/dL Leukocyte Esterase Rfl 1+ H (Negative) NAPOLEON/UL Urine RBC 0-2 (0-2) /hpf Urine WBC 6-10 H (0-3) /hpf Ur Squamous Epith Cells Few (Few) /hpf Urine Bacteria 1+ H /hpf Urine Casts 0-2 <April Chang PA-C - Last Filed: 01/11/25 15:15> Lab Results 01/01/25 Range/Units 17:00 WBC 4.9 (4.5-10.0) K/mm3 RBC 3.42 L (4.2-5.4) M/mm3 Hgb 12.4 (12.0-15.0) g/dL Hct 37.9 (37.0-47.0) % MCV 110.8 H (80-100) fl MCH 36.3 H (26-34) pg MCHC 32.7 (32-36) g/dl RDW 12.4 (11.5-14.5) % Plt Count 184 (150-375) k/mm3 MPV 10.2 (7.4-10.4) fl Immature Gran % (Auto) 0.0 (0-0.5) % Neut % (Auto) 54.6 (45.5-73.1) % Lymph % (Auto) 33.7 (18.3-44.2) % [place] % (Auto) 7.2 (2.6-8.5) % Eos % (Auto) 3.5 (0-4.4) % Baso % (Auto) 1.0 (0.2-1.2) % Lymph # (Auto) 1.64 (0.9-3.2) K/mm3 [place] # (Auto) 0.4 (0.1-0.6) K/mm3 Eos # (Auto) 0.2 (0-0.3) K/mm3 Baso # (Auto) 0.1 (0.0-0.1) K/mm3 Abs Immat Gran (auto) 0.00 (0.00-0.031) K/mm3 Absolute Neuts (auto) 2.7 (1.3-6.7) K/mm3 Absolute Nucleated RBC 0.000 (0.0-0.012) K/mm3 Band Neutrophils % 0 (0-6) % Nucleated RBC % 0.0 (0.0-0.2) % Platelet Estimate Adequate (Adequate) Macrocytosis 1+ (NORMAL) Schistocytes None seen Sodium 134 L (137-145) mmol/L Potassium 3.6 (3.4-5.0) mmol/L Chloride 96 L (98-107) mmol/L Carbon Dioxide 30 (22-30) mmol/L Anion Gap 8 (4-12) mmol/L BUN 12 (7-17) mg/dL Creatinine 0.98 (0.7-1.0) mg/dL Estim Creat Clear Calc 55 ml/min Estimated GFR 60 (59 - ) Glucose 104 (65-110) mg/dL Calcium 9.7 (8.4-10.2) mg/dL Total Bilirubin 0.7 (0.2-1.3) mg/dL AST 40 H (14-36) U/L ALT 32 (6-35) U/L Alkaline Phosphatase 62 (38-126) U/L Total Protein 7.6 (6.3-8.2) g/dL Albumin 4.6 (3.5-5.1) g/dL Urine Color Yellow (Yellow) Urine Appearance Clear (Clear) Urine pH 7.5 (5.0-9.0) Ur Specific Bailey 1.006 (1.001-1.035) Urine Protein Negative (Negative) mg/dL Urine Glucose (UA) Negative (Negative) mg/dL Urine Ketones Negative (Negative) mg/dL Ur Blood (Man) Negative (Negative) Urine Nitrate Negative (Negative) Urine Bilirubin Negative (Negative) Urine Urobilinogen 0.2 (<2.0) mg/dL Leukocyte Esterase Rfl 1+ H (Negative) NAPOLEON/UL Urine RBC 0-2 (0-2) /hpf Urine WBC 6-10 H (0-3) /hpf Ur Squamous Epith Cells Few (Few) /hpf Urine Bacteria 1+ H /hpf Urine Casts 0-2 <Johnson Mcnamara MD - Last Filed: 01/12/25 07:51> Discharge Plan Discharge Clinical Impression: Generalized weakness, Syncope and collapse Head injury Qualifiers: Encounter type: initial encounter Qualified Code(s): S09.90XA - Unspecified injury of head, initial encounter <April Chang PA-C - Last Filed: 01/11/25 15:15> Patient Disposition: Still a Patient <April Chang PA-C - Last Filed: 01/11/25 15:15> Condition: Stable <April Chang PA-C - Last Filed: 01/11/25 15:15>
--- NOTE | 2025-01-01 15:40 | ECG_ITS ---
Test Date: 2025-01-01 16:55:59 Measurements Intervals [place] Rate: 58 P: 40 WI: 134 QRS: 43 QRSD: 87 T: 17 QT: 405 QTc: 400 Interpretive Statements SINUS BRADYCARDIA NONSPECIFIC T-WAVE ABNORMALITY Electronically Signed On 01-01-2025 22:30:53 DEPORTATION EXAMINER by Fam Araya D.O
--- OUTSIDE RECORDS SUMMARY | 2025-01-01 16:41 | XMS_ITS | Clinical Summary ---
Author Organization [facility] [address] [facility] Address [address] [place] [id number] Care Team Providers Care Oracle Soa Developer Name Role Phone Jaclyn Salter Primary Care Provider [phone] Benson Newman MD Unavailable [phone] Allergies Active Allergy Reactions Criticality Noted Date [...] joint. Assessment & Plan (01/11/2021 10:09 AM PLANT PROTECTION SUPERINTENDENT): 45yoF referred for evaluation due to rash, joint pain/stiffness, muscle weakness, and labs showing +KISHA with AUTHORIZATION MANAGER 1.1. She denies any inflammatory sounding joint [...] 1:320 with otherwise unremarkable serologies including the AUTHORIZATION MANAGER, xrays with L SI joint OA, and [...] muscle weakness, and labs showing +KISHA with AUTHORIZATION MANAGER 1.1. She denies any inflammatory sounding joint [...] and her strength is appropriate throughout. The +AUTHORIZATION MANAGER can be seen in the setting of [...] Comments Blood Pressure 142/100 01/11/2021 8:38 AM PLANT PROTECTION SUPERINTENDENT Pulse 92 01/11/2021 8:38 AM PLANT PROTECTION SUPERINTENDENT Temperature 36 C (96.8 F) 01/11/2021 8:38 AM PLANT PROTECTION SUPERINTENDENT Respiratory Rate - - Oxygen Saturation 99% 01/11/2021 8:38 AM PLANT PROTECTION SUPERINTENDENT Inhaled Oxygen Concentration - - Weight 84.8 kg (187 lb) 01/11/2021 8:38 AM PLANT PROTECTION SUPERINTENDENT Height - - Body Mass Index - - Plan of Treatment Not on file Insurance ANTHEM [employer]ESS Care Teams Oracle Soa Developer Relationship Specialty Start Date End Date Jaclyn Salter PA [address] [place] [address] [phone] PCP - General Family Practice 11/26/20 Benson Newman MD [address] [place] [address] Consulting Physician Rheumatology 11/26/20
--- OUTSIDE RECORDS SUMMARY | 2025-01-01 16:41 | XMS_ITS | Encounter Summary ---
Author Organization [facility] Address [address] [place] [address] Care Team Providers Care Press Worker Helper Name Role Phone Jaclyn Salter PA-C Primary Care Provider [phone] Encounter Details Date Type Department Care Team (Late st Contact Info) Description 07/08/2019 Prep for Procedure [facility] Pre-Admission Testing [facility] [address] [place], [place] [id number] Laura Hernadez, [address] [place] [address] Social History Tobacco Use Types [...] PREG SCREEN-SERUM NEGATIVE 07/12/2019 11:31 AM CDT [facility] 07/12/2019 10:5 9 AM CDT [facility] Final R esult [facility] [address] [place] [address], * PRE-SURGICAL/PRE-PROCEDURE CORONAVIRUS (COVID 19) (07/09/2019 3:00 PM CDT) CORONAVIRUS SARS COV 2 PCR (RESP) NOT DETECTED NOT DETECTED 07/10/2019 5:14 PM CDT [facility] Comment: A Not Detected (negative) test [...] providers and patients using the following websites: https://www.[employer].com/home/Covid-19/HCP/[facility]/fact- sheet.html https://www.[employer].[facility]/home/Covid-19/Patients/ [facility]/fact-sheet.html This test has been authorized by the FDA under an Emergency Use Authorization (EUA) for use by authorized laboratories. Due to the current public health emergency, [facility] is receiving a high volume of samples [...] about COVID-19 can be found at the [facility] website: www.[employer].[facility]/Covid19. Test performed at [facility] [place] [address] [place] [address] Director: CARMEN COUCH DO,MPH NASOPHARYNGEAL SWAB / Unknown 07/09/2019 3:00 PM CDT us Laura Hernadez DO MICROBIOLOGY - GENERAL ORDE [facility] Final Result [facility] [id number] [place] [id number] documented in this encounter Visit Diagnoses Diagnosis Preop examination- Primary Preoperative examination, unspecified documented in this encounter Additional Health Concerns Infection Onset Date Last Indicated Resolved Time COVID-19 Rule Out 07/09/2019 07/09/2019 07/10/2019 5:14 PM CDT documented as of this encounter Care Teams Press Worker Helper Relationship Specialty Start Date End Date Jaclyn Salter PA-C PCP - General NURSE PRACTITIONER 07/08/19 documented as of this encounter
--- OUTSIDE RECORDS SUMMARY | 2025-01-01 16:41 | XMS_ITS | Clinical Summary ---
Author Organization [facility] Address [address] [place] [address] Care Team Providers Care Automotive Service Technician Name Role Phone Jaclyn Salter PA-C Primary Care Provider [phone] Allergies Active Allergy Reactions Criticality Noted Date [...] VIEW RT DIGI Routine 04/10/2019 10:00 AM KENNEL AIDE Abnormal mammogram THINPREP IMAGING SYSTEM PAP Routine 11/13/2012 10:47 AM CDT from Last 3 Months or Most Recently Relevant to Health Maintenance Results * MG DIAG ADD VIEW RT DIGI (04/10/2019 10:00 AM KENNEL AIDE) Anatomical Region Laterality Modality Breast Right Mammography, Rad iographic Imaging 04/10/2019 10:3 3 AM KENNEL AIDE Narrative 04/10/2019 10:35 AM KENNEL AIDE RIGHT BREAST DIAGNOSTIC MAMMOGRAPHY WITH COMPUTER AIDED [...] Comment: Patient Name: CHLOE SUÁREZ Specimen #: [id number] Procedure Date: 11/13/2012 /Age: 02 1975 (Age: 37) Gender: F Accessioned: 11/14/2012 Address: [address] [place] [id number] Reported: 11/19/2012 Encounter: [id number] Location: [facility] Physician(s): ALVIN GILES MD : CYTOPATHOLOGY - GYNECOLOGIC REPORT Diagnosis: TEST NAME: THINPREP PAP WITH EXHIBIT ARTIST,REFLEX HPV-ASCUS ONLY INTERPRETATION/RESULT: EPITHELIAL CELL ABNORMALITY: ATYPICAL [...] Electronically Signed sab11/22/2012 Specimen: THINPREP PAP WITH EXHIBIT ARTIST,REFLEX HPV-ASCUS ONLY Clinical Diagnosis and History Date [...] 3:15 PM 07/12/2019 11:11 PM Care Teams Automotive Service Technician Relationship Specialty Start Date End Date Jaclyn Salter PA-C PCP - General NURSE PRACTITIONER 07/08/19
--- OUTSIDE RECORDS SUMMARY | 2025-01-01 16:41 | XMS_ITS | Encounter Summary ---
Author Organization [facility] Address [address] [facility] [place] [address] Care Team Providers Care Machine Sole Leveler Name Role Phone Jaclyn Salter Primary Care Provider Encounter Details Date Type Department Care Team (Late st Contact Info) Description 01/22/2021 Lab Requisition [facility] [address] [place] [address] Garrick Levy MD [address] [facility] [place] [address] Social History Tobacco Use Types Packs/Day Years Used Date Smoking Tobacco: Never Assessed Comments Unknown Sex and Gender Information Value Date Recorded Sex Assigned at Not on file Legal Sex Female 4:29 PM ADMINISTRATION MANAGER Gender Identity Not on file Sexual Orientation Not on file documented as of this encounter Plan of Treatment Not on file documented as of this encounter Procedures Procedure Name Priority Date/Time Associated Diagnosis Comments DERMATOPATHOLOGY Routine 01/20/2021 12:0 0 AM ADMINISTRATION MANAGER documented in this encounter Results * DERMATOPATHOLOGY (01/20/2021 12:00 AM ADMINISTRATION MANAGER) Case Report Dermatopathology Report Case: [id number] Authorizing Provider: Garrick Levy MD Collected: 01/20/2021 12:00 AM Ordering Location: [facility] Received: 01/22/2021 08:12 AM Pathologist: Christy Galloway MD Specimen: Skin, right chest 11:16 AM ADMINISTRATION MANAGER DERMATOPATHOLOGY LABORATORY Final Diagnosis Specimen A. SKIN, right chest: PERIVASCULAR AND INTERSTITIAL MIXED INFLAMMATORY INFILTRATE (L50.9) CHRONIC PERIFOLLICULITIS WITH PITYROSPORUM (L73.8) (see microscopic description and comment) 11:16 AM [facility] DERMATOPATHOLOGY LABORATORY at 1116 ADMINISTRATION MANAGER Clinical History Prurigo vs other. Path# [id number] 11:16 AM [facility] DERMATOPATHOLOGY [facility]ORATORY Gross Description Specimen A: Received is one formalin filled container labeled with the patient's name and designated right chest. The specimen consists of a shave biopsy measuring [id number]. Jar 0. 11:16 AM [facility] DERMATOPATHOLOGY LABORATORY Microscopic Description Specimen A. [...] erythemas. Clinical correlation is recommended. 11:16 AM [facility] DERMATOPATHOLOGY [facility]ORATORY Disclaimer An external and internal positive and negative controls are appropriate for the histochemical, immunohistochemical and immunofluorescence stain(s) in this case (if any), except where stated explicitly. The performance characteristics of the stain(s) cited in this report were developed and its performance characteristic determined by the Dermatopathology Laboratory at [facility], directed by Dr. Lewis Travis. These tests need not be, and therefore are not, approved by the [place] Food and Drug Administration. The tests are used for clinical purposes. Billing Codes Specimen Charges Stain Charges 65847 1 81365 1 11:16 AM [facility] DERMATOPATHOLOGY LABORATORY Embedded Images 11:16 AM [facility] DERMATOPATHOLOGY LABORATORY Pathology/Cytolog y TISSUE SPECIMEN FROM SKIN / Unknown 01/20/2021 01/22/2021 8:12 AM [facility] us Garrick Levy MD LAB - PATHOLOGY/CYTOLOGY ORDER HAL Final Result DERMATOPATHOLOGY LABORATORY [facility] - Department of Dermatology [facility] [address] [facility], [address] Floor [address] [phone] documented in this encounter Visit Diagnoses Not on filedocumented in this encounter Care Teams Machine Sole Leveler Relationship Specialty Start Date End Date Jaclyn Salter PA [address] [place] [id number] PCP - General 10/14/21 documented as of this encounter
--- OUTSIDE RECORDS SUMMARY | 2025-01-01 16:41 | XMS_ITS | Clinical Summary ---
Author Organization [facility] Address [address] [place] [address] Care Team Providers Care Mix Technician Name Role Phone Jaclyn Salter Primary Care Provider Source Comments [facility],non-owned Affiliates and Associated Physician Practices is amultiple site organization consisting of ambulatory clinics and hospital sitesin [place], [place], [place] and [place]. This disclosure is being madepursuant to the Care Everywhere program and may not contain all information available regarding this patient. Last updated 17.[facility] OpenPortal Social History Tobacco Use Types Packs/Day Years Used Date Smoking Tobacco: Never Assessed Comments Unknown Sex and Gender Information Value Date Recorded Sex Assigned at Not on file Legal Sex Female 4:29 PM MILLER HELPER DISTILLERY Gender Identity Not on file Sexual Orientation [...] age to complete this topic Care Teams Mix Technician Relationship Specialty Start Date End Date Jaclyn Salter PA [address] [place] [id number] PCP - General 10/14/21
[2025-01-01 17:06] LABS: Hematocrit 37.9 % (37.0-47.0); Hemoglobin 12.4 g/dL (12.0-15.0); Immature Granulocyte Percent A 0.0 % (0-0.5); Lymphocytes Absolute Auto 1.64 K/mm3 (0.9-3.2); Mean Corpuscular HGB Conc 32.7 g/dl (32-36); Mean Corpuscular Hemoglobin 36.3 pg (26-34); Mean Corpuscular Volume 110.8 fl (80-100); Nucleated Red Blood Cells Absolute Auto 0.000 K/mm3 (0.0-0.012); Nucleated Red Blood Cells Perc 0.0 % (0.0-0.2); Platelet Count Result 184 k/mm3 (150-375); Red Blood Count 3.42 M/mm3 (4.2-5.4); White Blood Count 4.9 K/mm3 (4.5-10.0)
[2025-01-01 17:12] LABS: Add Urine Microscopic? YES; Appearance Urine Clear (Clear); Glucose Urine UA Negative (Negative); Leukocyte Esterase Ur 1+ LEU/UL (Negative); Nitrate Urine Negative (Negative); Non Pathogenic Casts 0-2; Specific Grav Ur 1.006 (1.001-1.035)
[2025-01-01 17:15] LABS: Alanine Aminotransferase 32 U/L (6-35); Albumin Level 4.6 g/dL (3.5-5.1); Alkaline Phosphatase 62 U/L (38-126); Anion Gap 8 mmol/L (4-12); Aspartate Amino Transferase 40 U/L (14-36); Bilirubin,Total 0.7 mg/dL (0.2-1.3); Blood Urea Nitrogen 12 mg/dL (7-17); Calcium 9.7 mg/dL (8.4-10.2); Carbon Dioxide 30 mmol/L (22-30); Chloride 96 mmol/L (98-107); Estimated CRCL calculation 55 ml/min; Estimated Glomerular Filt Rate 60; Glucose 104 mg/dL (65-110); Potassium 3.6 mmol/L (3.4-5.0); Sodium 134 mmol/L (137-145); Total Protein 7.6 g/dL (6.3-8.2)
[2025-01-01 17:41] LABS: Band Neutrophils Percent 0 % (0-6); Macrocytosis 1+ (NORMAL); Schistocytes None Seen
[2025-01-01] MEDS: HYDROmorphone HCL INJ (*CRX) 1 MG/ML SYR 0.5 MG IV PUSH (18:48)
[2025-01-01] MEDS: METOCLOPRAMIDE HCL INJ 10 MG/2 ML VIAL IV PUSH (18:49)
[2025-01-01] MEDS: ACETAMINOPHEN 500 MG TABLET 1000 MG PO ×2 (18:50→22:45)
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
[2025-01-02] VITALS (9 sets, daily range): BP systolic 101–118; BP diastolic 55–79; PULSE 55–75; RESP 16–18; TEMP 35.8–36.5; O2SAT 99–100; BMI 23.6
[2025-01-02] MEDS: GABAPENTIN 100 MG CAPSULE PO ×3 (01:44→17:48)
[2025-01-02] MEDS: PROPRANOLOL HCL ER 60 MG CAPSULE PO ×2 (02:04→20:19)
[2025-01-02] MEDS: MELATONIN 5 MG TABLET PO ×2 (02:04→20:19)
[2025-01-02] MEDS: NAPROXEN 250 MG TABLET PO ×2 (02:24→17:57)
[2025-01-02 06:00] LABS: Thyroid Stimulating Hormone Reflex 2.060 uIU/mL (0.465-4.68)
[2025-01-02 06:36] LABS: Vitamin B12 339.0 pg/mL (239-931)
[2025-01-02] MEDS: ACETAMINOPHEN 325 MG TABLET 650 MG PO ×3 (09:45→20:26)
--- NOTE | 2025-01-02 10:23 | PHAR ---
Patient's home meds of Magnesium glycinate 120mg/capsule, Plant calicum bone strength, lactose defense, and gluten defense supplements sent to pharmacy to verify. These meds are unable to be veriied due to no markings on tabs/not in database and non fda approved supplements.
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
[2025-01-02] MEDS: ONDANSETRON HCL ODT 4 MG TABLET PO (14:58)
[2025-01-03] VITALS: PULSE 90
[2025-01-03] MEDS: ACETAMINOPHEN 325 MG TABLET 650 MG PO ×2 (02:18→06:35)
[2025-01-03] MEDS: cefTRIAXone 1 GM in SODIUM CHLORIDE 0.9% IV 50 ML 100 ML IVPB (03:57)
[2025-01-03 04:00] VITALS: PULSE 63
[2025-01-03 05:42] VITALS: BP 111/67; PULSE 58; RESP 19; TEMP 36.4; O2SAT 100
[2025-01-03 06:12] LABS: Hematocrit 36.7 % (37.0-47.0); Hemoglobin 11.6 g/dL (12.0-15.0); Immature Granulocyte Percent A 0.2 % (0-0.5); Lymphocytes Absolute Auto 1.84 K/mm3 (0.9-3.2); Mean Corpuscular HGB Conc 31.6 g/dl (32-36); Mean Corpuscular Hemoglobin 36.1 pg (26-34); Mean Corpuscular Volume 114.3 fl (80-100); Nucleated Red Blood Cells Absolute Auto 0.000 K/mm3 (0.0-0.012); Nucleated Red Blood Cells Perc 0.0 % (0.0-0.2); Platelet Count Result 173 k/mm3 (150-375); Red Blood Count 3.21 M/mm3 (4.2-5.4); White Blood Count 4.6 K/mm3 (4.5-10.0)
[2025-01-03 06:32] LABS: Alanine Aminotransferase 26 U/L (6-35); Albumin Level 4.3 g/dL (3.5-5.1); Alkaline Phosphatase 53 U/L (38-126); Anion Gap 9 mmol/L (4-12); Aspartate Amino Transferase 28 U/L (14-36); Bilirubin,Total 0.4 mg/dL (0.2-1.3); Blood Urea Nitrogen 12 mg/dL (7-17); Calcium 9.7 mg/dL (8.4-10.2); Carbon Dioxide 27 mmol/L (22-30); Chloride 101 mmol/L (98-107); Estimated CRCL calculation 63 ml/min; Estimated Glomerular Filt Rate > 60; Glucose 117 mg/dL (65-110); Magnesium 1.7 mg/dL (1.6-2.3); Potassium 3.4 mmol/L (3.4-5.0); Sodium 137 mmol/L (137-145); Total Protein 7.0 g/dL (6.3-8.2)
[2025-01-03 08:00] VITALS: BP 110/80; PULSE 62; PULSE 63; RESP 16; TEMP 36.8; O2SAT 100
[2025-01-03] MEDS: GABAPENTIN 100 MG CAPSULE PO (08:18)
--- NOTE | 2025-01-03 10:18 | P.DS_ITS ---
DS: Admitting Diagnosis Discharge Date 01/03/25 Admitting Diagnosis Bilateral lower extremity weakness DS: Discharge Diagnosis Discharge Diagnosis (1) Syncope and collapse: Code(s): R55 - Syncope and collapse Status: Acute (2) Generalized weakness: Code(s): R53.1 - Weakness Status: Acute (3) UTI (urinary tract infection), bacterial: Code(s): N39.0 - Urinary tract infection, site not specified; A49.9 - Bacterial infection, unspecified Status: Acute DS: Summary Hospital Course Reason for hospitalization: Ground level fall, weakness Hospital Course: Patient is a 49-year-old female with past medical history peripheral neuropathy, anxiety/depression, insomnia, conversion disorder with psychogenic nonepileptic seizure, polyneuropathy, essential hypertension, palpitations, alcohol use who was admitted on 01/01 with worsening weakness. Patient had a ground level fall on 12/30 which she states she had fell onto a table. She is having difficulty breathing from chest pain after the trauma. She has been advised to use incentive spirometer. Patient was hospitalized from 01/01-01/03. She is found to have UTI due to Gram-negative suzie treated with a dose of Rocephin and will discharge on cefpodoxime for 2 more days for total 3 day antibiotic course. She has outpatient follow-up with Neurology Dr. Duncan on Sunday 01/07 to review results of recent EMG/NCS. She may take Tylenol and ibuprofen for pain control. She has been advised to take ibuprofen with food. On our workup we did MRIs of the T and L-spine with no cord compression or significant changes. Patient has mild multilevel degenerative changes. At time of discharge her labs are stable, vitals stable, patient is stable for discharge home. Patient follow-up with PCP and Neurology. Rx for cefpodoxime given. Patient understands and agrees the plan. Status at Discharge Cognitive/behavioral status at discharge: Baseline Time Spent with Patient Time attestation: Total time spent providing and/or coordinating discharge services: 35 minutes Exam Narrative: - GENERAL: Pleasant woman in No acute d istress. Well-nourished. - EYES: EOMI. Anicteric. - HENT: Moist mucous membranes. - LUNGS: Clear to auscultation bilateral ly, no wheezing, rhonchi, or rales. - CARDIOVASCULAR: Regular rate and rhyth m. No murmur. No JVD. - ABDOMEN: Soft, non-tender and non-dist ended. No palpable masses. - EXTREMITIES: No edema. Peripheral puls es 2+. Non-tender. - NEUROLOGIC: No focal neurological defi cits. CN II-XII grossly intact. - PSYCHIATRIC: Awake, Alert and oriented x 3. Appropriate mood and affect. slightly anxious DS: Data Data Completed and Pending Labs on day of discharge: Labs from last 24 hours 01/03/25 05:08 WBC 4.6 RBC 3.21 L Hgb 11.6 L Hct 36.7 L MCV 114.3 H MCH 36.1 H MCHC 31.6 L RDW 12.2 Plt Count 173 MPV 11.3 H Immature Gran % (Auto) 0.2 Neut % (Auto) 48.1 Lymph % (Auto) 40.4 [place] % (Auto) 7.3 Eos % (Auto) 2.9 Baso % (Auto) 1.1 Lymph # (Auto) 1.84 [place] # (Auto) 0.3 Eos # (Auto) 0.1 Baso # (Auto) 0.1 Abs Immat Gran (auto) 0.01 Absolute Neuts (auto) 2.2 Absolute Nucleated RBC 0.000 Nucleated RBC % 0.0 Sodium 137 Potassium 3.4 Chloride 101 Carbon Dioxide 27 Anion Gap 9 BUN 12 Creatinine 0.84 Estim Creat Clear Calc 63 Estimated GFR > 60 Glucose 117 H Calcium 9.7 Phosphorus 4.4 Magnesium 1.7 Total Bilirubin 0.4 AST 28 ALT 26 Alkaline Phosphatase 53 Total Protein 7.0 Albumin 4.3 Alpha-Tocopherol Vit E Pending Gamma-Tocopherol Vit E Pending Preliminary micro results at discharge 01/01/25 17:00 - Preliminary Urine Clean Catch Gram negative bacilli isolated Imaging Radiologist's impression: L spine MRI 01/02 IMPRESSION: No acute findings. Mild multilevel degenerative changes with no spinal canal stenosis or discrete disc protrusion. T spine MRI 01/02 IMPRESSION: 1. No thoracic spinal cord pathology, spinal canal stenosis, or discrete disc protrusion. 2. Mild multilevel degenerative changes throughout the thoracic spine. CTA chest 01/01 IMPRESSION: There is no pulmonary embolism, aortic dissection, pericardial fluid or thoracic aneurysm. No acute lung findings. CT head 01/01 IMPRESSION: 1. No fracture lucency C1-C7. Multilevel degenerative changes with spondylolisthesis C3 on C4 which appears degenerative. 2. No facial bone fracture. rib x ray 01/01 IMPRESSION: 1. No acute pulmonary process. 2. No rib fracture is identified. Discharge Plan Discharge Attending physician on discharge: Antonia Sims Consulting providers: Kehinde Hernandez Discharging Clinician: Antonia Sims Anticipated Discharge Date/Time: 01/03/25 10:13 Patient Disposition: Home Activity: as tolerated Diet: regular Discharge Instructions: Please continue 2 more days of antibiotics to complete 3 day antibiotic course f or UTI GNR likely ecoli or klebsiella. Follow-up with neurologist Monday for EMG/NCS results. Please use incentive spirometer to help prevent atelectasis and pneumonia. Pain control Tylenol and ibuprofen. Patient Instructions: Antibiotic Form Patient Language: Azeri Stand Alone Forms: General Discharge Information Follow-up/Referrals: Abby Briggs APRN [Primary Care Provider, Family Practice] - 1 Week Greer Duncan MD [Physician, Neurology] - Keep Reg. Scheduled Appt. Discharge Medications: New cefpodoxime 200 mg tablet 200 mg PO BID 2 Days Qty: 4 0RF Rx Instructions: must administer with a meal/food Continued fluocinonide 0.05 % cream 1 applic topical BID PRN (Reason: itching) Qty: 120 2RF gabapentin 100 mg capsule 100 mg PO BID magnesium glycinate 120 mg capsule 120 mg PO HS Repozen Sleep Aid 5-30-50 mg capsule 1 cap PO HS propranolol 60 mg capsule,extended release 24 hr 60 mg PO HS trazodone 150 mg tablet 200 mg PO QHS hydroxyzine HCl 10 mg tablet 10 mg PO BID PRN (Reason: itching) duloxetine 60 mg capsule,delayed release(DR/EC) 90 mg PO HS ondansetron 4 mg tablet,disintegrating 4 mg PO Q8H PRN (Reason: nausea and vomiting) Qty: 30 0RF Rx Instructions: Dissolve under tongue for nausea and vomiting clonazepam 0.5 mg tablet 0.5 mg PO BID PRN (Reason: anxiety) Qty: 60 0RF Date of admission: 01/01/25 22:45 Primary Care Provider: Abby Briggs Admitting Provider: Carol Cee Attending physician on admission: Carol Cee Condition: Stable Hospitalist MIPS Heart Failure (Exclusion) Patient has history of Heart Transplant or Left Ventricular Assistive Device?: No IF YES, STOP HERE Heart Failure (Qualifier) Patient has current or prior documentation of LVEF less than or equal to 40%, or mod/servere depressed LVSF?: No IF NO, STOP HERE
[2025-01-03] MEDS: NAPROXEN 250 MG TABLET PO (10:52)
[2025-01-03 11:58] VITALS: O2SAT 97
[2025-01-07 18:08] LABS: Copper, Serum or Plasma 79 ug/dL (80-158)
== END 2025-01-03 12:50 | disposition home or self-care (01) ==
LOC: ANHED 16:52 → ANH3MEDSUR 23:11
PROVIDERS: Physician Assistant; Admitting Provider General Practice; Emergency Provider Emergency Medicine; PCP Nurse Practitioner Family; Visit Provider General Practice
DX: R53.1 Weakness (principal); W18.30XA Fall on same level, unspecified, initial encounter; F44.5 Conversion disorder with seizures or convulsions; R55 Syncope and collapse; N39.0 Urinary tract infection, site not specified; A49.9 Bacterial infection, unspecified; F41.9 Anxiety disorder, unspecified; F10.90 Alcohol use, unspecified, uncomplicated; I10 Essential (primary) hypertension; G62.9 Polyneuropathy, unspecified; R00.1 Bradycardia, unspecified; M72.2 Plantar fascial fibromatosis; M25.571 Pain in right ankle and joints of right foot; F17.290 Nicotine dependence, other tobacco product, uncomplicated; Z81.1 Family history of alcohol abuse and dependence; Z81.8 Family history of other mental and behavioral disorders; Z80.1 Family history of malignant neoplasm of trachea, bronchus and lung; Z80.9 Family history of malignant neoplasm, unspecified; Z82.49 Family history of ischemic heart disease and other diseases of the circulatory system; Z82.61 Family history of arthritis; Z82.69 Family history of other diseases of the musculoskeletal system and connective tissue
CPT/HCPCS: 36415; 70450; 70486; 71046; 71100; 71275; 72125; 72157; 72158; 73030; 73502; 73630; 80053; 81001; 82525; 82607; 82746; 83735; 84100; 84443; 84446; 85025; 87086; 87186; 93005; 96365; 96374; 96375; 97161; 99285; A9270; A9577; G0378; J0696; J1171; J2765; Q9967